=== PATIENT | male | born 1950 | race Caucasian/White ===

== ENCOUNTER 2016-10-13 17:12 | Emergency (ER) | payer MEDICARE ==
[2016-10-13] MEDS ORDERED: MECLIZINE HCL 25 MG TABLET PO ONE (17:48)
--- NOTE | 2016-10-13 18:01 | ER Document Report ---
ED Medical Screen (RME) - General Chief Complaint: Dizziness Stated Complaint: DIZZINESS Time Seen by Provider: 10/13/16 17:37 Notes: Patient is a 66-year-old male, PMHx CAD s/p 13 stents, who presents with 3 episodes of ataxia today. All 3 episodes lasted about an hour and resolved spontaneously. He feels off balance and has never had these symptoms before. When he arrived to the ER, he had another episode of ataxia. PE: Positive Romberg's test, no nystagmus, 5/5 strength in all 4 extremities I have greeted and performed a rapid initial assessment of this patient. A comprehensive ED assessment and evaluation of the patient, analysis of test results and completion of the medical decision making process will be conducted by additional ED providers. TRAVEL OUTSIDE OF THE [place] IN LAST 30 DAYS: No - Related Data Allergies/Adverse Reactions: No Known Allergies Allergy (Unverified 10/13/16 17:17) Past Medical History - Past Medical History Cardiac Medical History: Reports: Hx Coronary Artery Disease, Hx Hypercholesterolemia, Hx Hypertension Renal/ Medical History: Denies: Hx Peritoneal Dialysis Past Surgical History: Reports: Hx Cholecystectomy - cabgx3, Hx Coronary Artery Bypass Graft, Hx Orthopedic Surgery - Immunizations Hx Diphtheria, Pertussis, Tetanus Vaccination: Yes Physical Exam - Vital signs Vitals: Temp Pulse Resp BP Pulse Ox 97.9 F 72 20 148/70 H 97 10/13/16 17:17 10/13/16 17:17 10/13/16 17:17 10/13/16 17:17 10/13/16 17:17 Course - Vital Signs Vital signs: Temp Pulse Resp BP Pulse Ox 97.9 F 72 20 148/70 H 97 10/13/16 17:17 10/13/16 17:17 10/13/16 17:17 10/13/16 17:17 10/13/16 17:17
--- NOTE | 2016-10-13 18:25 | RADIOLOGY REPORT (SQ) ---
EXAM DESCRIPTION: CHEST SINGLE VIEW COMPLETED DATE/TIME: 10/13/2016 6:15 pm REASON FOR STUDY: near syncope COMPARISON: 11/20/2014 EXAM PARAMETERS: NUMBER OF VIEWS: One view. TECHNIQUE: Single frontal radiographic view of the chest acquired. RADIATION DOSE: NA LIMITATIONS: None. FINDINGS: LUNGS AND PLEURA: Again demonstrated the numerous calcified nodules throughout both lungs likely representing old granulomatous disease. These do not appear significantly changed the prior study. No opacities, new lesion or pneumothorax. No pleural effusion. MEDIASTINUM AND HILAR STRUCTURES: No masses. Contour normal. HEART AND VASCULAR STRUCTURES: Heart normal in size. Normal vasculature. BONES: No acute findings. HARDWARE: None in the chest. OTHER: No other significant finding. IMPRESSION: No acute cardiopulmonary disease. Stable bilateral pulmonary nodules likely representin g old granulomatous disease. TECHNICAL DOCUMENTATION: JOB ID: [id number]
[2016-10-13 18:35] LABS: ABSOLUTE BASOPHILS # (AUTO) 0.1 10^3/uL (0.0-0.2); ABSOLUTE EOSINOPHILS # (AUTO) 0.2 10^3/uL (0.0-0.6); ABSOLUTE LYMPHOCYTES (AUTO) 1.9 10^3/uL (0.5-4.7); ABSOLUTE MONOCYTES (AUTO) 0.7 10^3/uL (0.1-1.4); ABSOLUTE NEUT (AUTO) 3.7 10^3/uL (1.7-8.2); BASOPHILS % (AUTO) 0.9 % (0-2); HEMATOCRIT 41.4 % (37.9-51.0); HEMOGLOBIN 13.7 g/dL (13.5-17.0); HGB HCT DIFFERENCE -0.3; LYMPHOCYTES % (AUTO) 28.9 % (13-45); MEAN CORPUSCULAR HEMOGLOBIN 29.7 pg (27.0-33.4); MEAN CORPUSCULAR VOLUME 90 fl (80-97); MONOCYTES % (AUTO) 11.1 % (3-13); RED BLOOD COUNT 4.61 10^6/uL (4.35-5.55); RED CELL DISTRIBUTION WIDTH 13.7 % (11.5-14.0); SEGMENTED NEUTROPHILS % (AUTO) 56.1 % (42-78); WHITE BLOOD COUNT 6.5 10^3/uL (4.0-10.5)
[2016-10-13 18:51] LABS: ALANINE AMINOTRANSFERASE 21 U/L (21-72); ALBUMIN 4.1 g/dL (3.5-5.0); ALKALINE PHOSPHATASE 81 U/L (38-126); ANION GAP 13 (5-19); ASPARTATE AMINO TRANSFERASE 16 U/L (17-59); BILIRUBIN,DIRECT 0.3 mg/dL (0.0-0.4); BILIRUBIN,TOTAL 0.5 mg/dL (0.2-1.3); BLOOD UREA NITROGEN 19 mg/dL (7-20); CALCIUM 9.6 mg/dL (8.4-10.2); CARBON DIOXIDE 23 mmol/L (22-30); CHLORIDE 102 mmol/L (98-107); CREATINE KINASE 69 U/L (55-170); GLUCOSE 96 mg/dL (75-110); LIPASE 90.6 U/L (23-300); POTASSIUM 4.6 mmol/L (3.6-5.0); SODIUM 138.1 mmol/L (137-145); TOTAL PROTEIN 7.6 g/dL (6.3-8.2)
--- NOTE | 2016-10-13 19:14 | ER Document Report ---
ED General - General Chief Complaint: Dizziness Stated Complaint: DIZZINESS Time Seen by Provider: 10/13/16 17:37 Notes: Patient is a 66-year-old male who presents with intermittent vertigo for the past 6 hours. Patient states that he has episodes in which he feels like his vision is blurred, and he feels unsteady on his feet. States that he was at work today and his symptoms became so severe that he could not see the [employer] register so he had to leave. He did however drive home despite the symptoms and states that he was able to do so without significant difficulty. States that the symptoms resolved each time he would lay down and closes eyes. At time of my assessment he denies any ongoing symptoms. States that he believes the medication provided in triage has helped significantly. He has no similar history in the past. He has not seen his primary care doctor regarding today's concerns. He denies any weakness or numbness. Denies any point that he was unable to ambulate. Denies any history of prior CVA. Denies any headache, neck pain or altered mental status. No head trauma. Currently takes a daily aspirin TRAVEL OUTSIDE OF THE [place] IN LAST 30 DAYS: No - Related Data Allergies/Adverse Reactions: No Known Allergies Allergy (Unverified 10/13/16 17:17) Past Medical History - General Information source: Patient - Social History Smoking Status: Never Smoker Chew tobacco use (# tins/day): No Frequency of alcohol use: None Drug Abuse: None Lives with: Family Family History: Reviewed & Not Pertinent Patient has suicidal ideation: No Patient has homicidal ideation: No - Past Medical History Cardiac Medical History: Reports: Hx Coronary Artery Disease, Hx Hypercholesterolemia, Hx Hypertension Renal/ Medical History: Denies: Hx Peritoneal Dialysis Past Surgical History: Reports: Hx Cholecystectomy - cabgx3, Hx Coronary Artery Bypass Graft, Hx Orthopedic Surgery - Immunizations Hx Diphtheria, Pertussis, Tetanus Vaccination: Yes Review of Systems - Review of Systems Notes: Constitutional: Negative for fever. HENT: Negative for sore throat. Eyes: Negative for visual changes. Cardiovascular: Negative for chest pain. Respiratory: Negative for shortness of breath. Gastrointestinal: Negative for abdominal pain, vomiting or diarrhea. Genitourinary: Negative for dysuria. Musculoskeletal: Negative for back pain. Skin: Negative for rash. Neurological: Negative for headaches, weakness or numbness. Positive for vertigo 10 point ROS negative except as marked above and in HPI. Physical Exam - Vital signs Vitals: Temp Pulse Resp BP Pulse Ox 97.9 F 72 20 148/70 H 97 10/13/16 17:17 10/13/16 17:17 10/13/16 17:17 10/13/16 17:17 10/13/16 17:17 Interpretation: Hypertensive Notes: PHYSICAL EXAMINATION: GENERAL: Well-appearing, well-nourished and in no acute distress. HEAD: Atraumatic, normocephalic. EYES: Pupils equal round and reactive to light, extraocular movements intact, sclera anicteric, conjunctiva are normal. ENT: nares patent, oropharynx clear without exudates. Moist mucous membranes. NECK: Normal range of motion, supple without lymphadenopathy LUNGS: Breath sounds clear to auscultation bilaterally and equal. No wheezes rales or rhonchi. HEART: Regular rate and rhythm without murmurs ABDOMEN: Soft, nontender, normoactive bowel sounds. No guarding, no rebound. No masses appreciated. EXTREMITIES: Normal range of motion, no pitting or edema. No cyanosis. NEUROLOGICAL: Face symmetric. Tongue protrudes midline. Extraocular motions intact. Pupils are 2 mm and equally reactive. Normal speech, normal gait. 5 out of 5 strength in both the distal and proximal upper and lower extremities bilaterally. Sensation is grossly intact throughout. Finger to nose testing normal. Pronator drift normal. Negative Romberg. Horizontal nystagmus towards the left. Positive head impulse testing toward the left. PSYCH: Normal mood, normal affect. SKIN: Warm, Dry, normal turgor, no rashes or lesions noted. Course - Re-evaluation Re-evalutation: 10/13/16 19:08 Presentation of vertigo that appears most consistent with a benign peripheral vertigo. Patient has no abnormal findings on exam. Normal cerebellar testing, steady even gait. Able to walk on heels and toes. Normal proprioception. Patient did have improvement of symptoms here in the emergency department with meclizine. Apparently in triage patient did have some concerning findings on exam which are now completely resolved. HINTS exam does demonstrate horizontal nystagmus but no evidence of vertical nystagmus. He also has positive head impulse testing toward the left. Overall his clinical history is not consistent with an acute cerebral infarction for several reasons. First: Patient's symptoms were intermittent lasting for several minutes at a time and then resolving spontaneously. Basilar insufficiency could trigger symptoms such as this but it would be unlikely to be a true ischemic event as this would result in a permanent deficit. Second: Patient states even in the midst of his symptoms he was still able to ambulate and even drove a car. The mild nature of his symptoms likewise goes against a cerebellar infarction. Third: Patient has no focal neurologic deficits on examination here, passed all cerebellar testing without any difficulty and is able to ambulate without any ataxia. I have discussed with the patient the option of proceeding with an MRI here in the emergency department versus continuing outpatient management with meclizine and follow-up with his outpatient provider for continued evaluation and consideration of an outpatient neurology referral should his symptoms not improved. Patient is much more agreeable to this approach and has verbalized an understanding of the risks and benefits of each approach. Overall I suspect likely acute vestibular neuritis. I do not believe neurologic imaging is indicated at this time based on physical examination and clinical history. Patient will be discharged with recommendations to return should their symptoms worsen or they develop new concerning symptoms. - Vital Signs Vital signs: Temp Pulse Resp BP Pulse Ox 97.9 F 67 13 158/80 H 98 10/13/16 17:17 10/13/16 18:00 10/13/16 19:41 10/13/16 19:42 10/13/16 19:01 - Laboratory Result Diagrams: 10/13/16 18:26 10/13/16 18:26 Laboratory results interpreted by me: 10/13/16 18:26 AST 16 L Discharge - Discharge Clinical Impression: Vertigo Condition: Good Disposition: HOME, SELF-CARE Additional Instructions: You were seen today for lightheadedness/dizziness. The exact cause of your symptoms is unclear but your workup here is reassuring without any concerning findings. Please follow closely with your primary care physician in the next 1- 3 days. Return if you pass out, have dizziness the comes and stays, have additional episodes of lightheadedness, develop weakness/numbness, have persistent vomiting, chest pain, shortness of breath or any other symptoms that are concerning to you. Prescriptions: Meclizine HCl 25 mg PO Q6HP PRN #30 tablet PRN Reason:
[2016-10-13 19:46] VITALS: BP 158/80
--- NOTE | 2016-10-13 23:41 | EKG REPORT ---
SEVERITY:- NORMAL ECG - SINUS RHYTHM : Confirmed by: Angel Jasso 13-Oct-2016 23:41:11
== END 2016-10-13 19:46 | disposition home or self-care (01) ==
LOC: ER 17:12
DX: R42 Dizziness and giddiness (principal); I25.10 Atherosclerotic heart disease of native coronary artery without angina pectoris; E78.00 Pure hypercholesterolemia, unspecified; I10 Essential (primary) hypertension; Z90.49 Acquired absence of other specified parts of digestive tract; Z95.1 Presence of aortocoronary bypass graft
CPT/HCPCS: 93005; 99284; 36415; 82550; 83690; 85025; 80053; 84484; 71010; 93010; A9270

== ENCOUNTER 2018-08-11 14:13 | Emergency (ER) | payer MEDICARE ==
[2018-08-11] MEDS ORDERED: ASPIRIN 81 MG TABLET, CHEWABLE PO ONE (15:43)
--- NOTE | 2018-08-11 15:46 | ER Document Report ---
ED Medical Screen (RME) - General Chief Complaint: Flank Pain Stated Complaint: CHEST PAIN Time Seen by Provider: 08/11/18 15:37 Notes: Patient is a 68-year-old male presents to the emergency department for fever. Family states patient does have a history of bladder cancer and has had increased urination that is dark in color. Patient is also complaining of generalized chest pain. States that chest pain this afternoon took 1 sublingual nitro which relieved the chest pain. Patient states she is also having generalized lower back pain and bilateral kidney areas. Patient states he took 1 of his pain medications about 2 hours prior to arrival to the emergency room and states he overall feels a lot better. GENERAL: Alert, interacts well. No acute distress. SKIN: Warm, dry, normal turgor. No rashes or lesions noted. I have greeted and performed a rapid initial assessment of this patient. A comprehensive ED assessment and evaluation of the patient, analysis of test results and completion of the medical decision making process will be conducted by additional ED providers. This medical record was dictated with voice recognizing software. There may be grammatical, syntax errors that are unintended. TRAVEL OUTSIDE OF THE [place] IN LAST 30 DAYS: No - Related Data Allergies/Adverse Reactions: No Known Allergies Allergy (Verified 08/11/18 15:33) Past Medical History - Social History Frequency of alcohol use: None Drug Abuse: None - Past Medical History Cardiac Medical History: Reports: Hx Coronary Artery Disease, Hx Hypercholesterolemia, Hx Hypertension Renal/ Medical History: Denies: Hx Peritoneal Dialysis Past Surgical History: Reports: Hx Cardiac Catheterization - X13 CARDIAC STENTS, Hx Cholecystectomy - cabgx3, Hx Coronary Artery Bypass Graft, Hx Orthopedic Berna sonya - Immunizations Hx Diphtheria, Pertussis, Tetanus Vaccination: Yes Physical Exam - Vital signs Vitals: Temp Pulse Resp BP Pulse Ox 98.4 F 75 16 129/98 H 93 08/11/18 14:22 08/11/18 14:22 08/11/18 14:22 08/11/18 14:22 08/11/18 14:22 Course - Vital Signs Vital signs: Temp Pulse Resp BP Pulse Ox 98.4 F 75 16 129/98 H 93 08/11/18 14:22 08/11/18 14:22 08/11/18 14:22 08/11/18 14:22 08/11/18 14:22
--- NOTE | 2018-08-11 16:03 | RADIOLOGY REPORT (SQ) ---
EXAM DESCRIPTION: CHEST SINGLE VIEW COMPLETED DATE/TIME: 08/11/2018 3:52 pm REASON FOR STUDY: cp COMPARISON: 10/13/2016 EXAM PARAMETERS: NUMBER OF VIEWS: One view. TECHNIQUE: Single frontal radiographic view of the chest acquired. RADIATION DOSE: NA LIMITATIONS: None. FINDINGS: LUNGS AND PLEURA: No acute airspace opacity. There are multiple bilateral, likely calcifi ed pulmonary nodules stable dating back to at least 2016. MEDIASTINUM AND HILAR STRUCTURES: No masses. Contour normal. HEART AND VASCULAR STRUCTURES: Cardiomegaly status post median sternotomy with coronary artery stents . BONES: No acute findings. HARDWARE: None in the chest. OTHER: No other significant finding. IMPRESSION: Cardiomegaly without acute abnormality of the lungs. No acute airspace opacity. Benign , likely calcified bilateral pulmonary nodules. TECHNICAL DOCUMENTATION: JOB ID: [id number] [employer]- All Rights Reserved Reading location - IP/workstation name: [email or web address]
[2018-08-11 17:50] LABS: ABSOLUTE LYMPHOCYTES (AUTO) 0.4 10^3/uL (0.5-4.7); ABSOLUTE MONOCYTES (AUTO) 0.4 10^3/uL (0.1-1.4); ABSOLUTE NEUT (AUTO) 4.9 10^3/uL (1.7-8.2); BASOPHILS % (AUTO) 0.5 % (0-2); EOSINOPHILS % (AUTO) 0.3 % (0-6); HEMATOCRIT 31.1 % (37.9-51.0); HEMOGLOBIN 10.2 g/dL (13.5-17.0); LYMPHOCYTES % (AUTO) 6.9 % (13-45); MEAN CORPUSCULAR HEMOGLOBIN 25.9 pg (27.0-33.4); MEAN CORPUSCULAR HGB CONC 32.8 g/dL (32.0-36.0); MEAN CORPUSCULAR VOLUME 79 fl (80-97); MONOCYTES % (AUTO) 6.5 % (3-13); PLATELET COUNT 135 10^3/uL (150-450); RED BLOOD COUNT 3.93 10^6/uL (4.35-5.55); SEGMENTED NEUTROPHILS % (AUTO) 85.8 % (42-78); TOTAL CELLS COUNTED % (AUTO) 100 %; WHITE BLOOD COUNT 5.7 10^3/uL (4.0-10.5)
[2018-08-11 17:53] LABS: VENOUS BLOOD BASE EXCESS -0.9 mmol/L; VENOUS BLOOD HCO3 24.8 mmol/L (20-32); VENOUS BLOOD PCO2 45.6 mmHg (35-63); VENOUS BLOOD PH 7.35 (7.30-7.42)
[2018-08-11 17:56] LABS: INTERNATIONAL RATION (INR) 1.11; PROTHROMBIN TIME 14.9 SEC (11.4-15.4)
[2018-08-11 18:09] LABS: ALANINE AMINOTRANSFERASE 45 U/L (21-72); ALBUMIN 4.3 g/dL (3.5-5.0); ALKALINE PHOSPHATASE 104 U/L (38-126); ANION GAP 14 (5-19); ASPARTATE AMINO TRANSFERASE 52 U/L (17-59); BILIRUBIN,DIRECT 0.4 mg/dL (0.0-0.4); BILIRUBIN,TOTAL 0.8 mg/dL (0.2-1.3); BLOOD UREA NITROGEN 26 mg/dL (7-20); CALCIUM 9.4 mg/dL (8.4-10.2); CARBON DIOXIDE 22 mmol/L (22-30); CHLORIDE 98 mmol/L (98-107); GLUCOSE 130 mg/dL (75-110); POTASSIUM 4.5 mmol/L (3.6-5.0); TOTAL PROTEIN 7.6 g/dL (6.3-8.2)
[2018-08-11 18:25] LABS: APPEARANCE,URINE SLIGHTLY-CLOUDY; BILIRUBIN,URINE NEGATIVE (NEGATIVE); COLOR,URINE AMBER; GLUCOSE, URINE NEGATIVE (NEGATIVE); KETONES,URINE NEGATIVE (NEGATIVE); LEUKOCYTE ESTERASE,URINE SMALL (NEGATIVE); NITRITE,URINE NEGATIVE (NEGATIVE); PROTEIN,URINE 100 mg/dL (NEGATIVE)
--- NOTE | 2018-08-11 19:03 | EKG REPORT ---
SEVERITY:- ABNORMAL ECG - SINUS RHYTHM PROBABLE LEFT ATRIAL ABNORMALITY REPOL ABNRM SUGGESTS ISCHEMIA, LATERAL LEADS : Confirmed by: Deshawn Dye MD 11-Aug-2018 19:02:54
[2018-08-11] MEDS ORDERED: KETOROLAC TROMETHAMINE INJ/PF 30 MG/1 ML SDV IV ONE (20:59)
[2018-08-11] MEDS ORDERED: MORPHINE SULFATE 10 MG/ML INJ IV PRN (20:59)
[2018-08-11] MEDS ORDERED: NORMAL SALINE 1000 ML 1,000 ML IV ONE (21:00)
[2018-08-11] MEDS ORDERED: CEFTRIAXONE INJ 1000 MG VIAL IV ONE (21:00)
--- NOTE | 2018-08-11 21:01 | ER Document Report ---
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 The patient also apparently had some mild chest pain much earlier in the day approximately 10 to 12 hours prior to presentation which has now resolved. That pain was apparently a stabbing, aching pain just medial to the right shoulder without associated shortness of breath, nausea or vomiting. Has completely resolved at this time and has been gone for more than 8 hours per the patient's report. Family's main concern is that the patient has seemed somewhat lethargic, had a fever up to 102.7 F at home treated with Tylenol with appropriate response. Family is concerned that the patient may have an infection given the recent darkening of his urine. He has not seen his primary care doctor regarding today's concerns. No recent hi story of similar symptoms. Has had cough but no sputum production. TRAVEL OUTSIDE OF THE [place] IN LAST 30 DAYS: No - Related Data Allergies/Adverse Reactions: No Known Allergies Allergy (Verified 08/11/18 15:33) Past Medical History - General Information source: Patient - Social History Smoking Status: Current Every Day Smoker Frequency of alcohol use: None Drug Abuse: None Lives with: Family Family History: Reviewed & Not Pertinent Patient has suicidal ideation: No Patient has homicidal ideation: No - Past Medical History Cardiac Medical History: Reports: Hx Coronary Artery Disease, Hx Hypercholesterolemia, Hx Hypertension Renal/ Medical History: Denies: Hx Peritoneal Dialysis Past Surgical History: Reports: Hx Cardiac Catheterization - X13 CARDIAC STENTS, Hx Cholecystectomy - cabgx3, Hx Coronary Artery Bypass Graft, Hx Orthopedic Surgery - Immunizations Hx Diphtheria, Pertussis, Tetanus Vaccination: Yes Review of Systems - Review of Systems Notes: Constitutional: Positive for fever. HENT: Negative for sore throat. Eyes: Negative for visual changes. Cardiovascular: Positive for chest pain earlier now resolved Respiratory: Negative for shortness of breath. Gastrointestinal: Positive for lower abdominal pain and nausea Genitourinary: Positive for darkening of urine and dysuria Musculoskeletal: Negative for back pain. Skin: Negative for rash. Neurological: Negative for headaches, weakness or numbness. 10 point ROS negative except as marked above and in HPI. Physical Exam - Vital signs Vitals: Temp Pulse Resp BP Pulse Ox 98.4 F 75 16 129/98 H 93 08/11/18 14:22 08/11/18 14:22 08/11/18 14:22 08/11/18 14:22 08/11/18 14:22 Interpretation: Normal Notes: PHYSICAL EXAMINATION: GENERAL: Appears older than stated age but in no acute distress HEAD: Atraumatic, normocephalic. EYES: Pupils equal round and reactive to light, extraocular movements intact, sclera anicteric, conjunctiva are normal. ENT: nares patent, oropharynx clear without exudates. Mildly dry mucous membranes. NECK: Normal range of motion, supple without lymphadenopathy LUNGS: Breath sounds clear to auscultation bilaterally and equal. No wheezes rales or rhonchi. HEART: Regular rate and rhythm without murmurs ABDOMEN: Soft, nontender, normoactive bowel sounds. No guarding, no rebound. No masses appreciated. EXTREMITIES: Right BKA. No pitting or edema. NEUROLOGICAL: Mild expressive aphasia. No focal neurological deficits. Moves all extremities spontaneously and on command. PSYCH: Normal mood, normal affect. SKIN: Warm, Dry, normal turgor, no rashes or lesions noted. Course - Re-evaluation Re-evalutation: 08/11/18 21:00 Patient presents with bilateral lower abdominal pain, fever up to 102.7 F at home as well as bilateral flank pain. Patient has a known history of bladder malignancy, apparently with concerns of metastasis to liver although the patient was not thought to be able to tolerate total bladder removal due to prior history of coronary artery disease. Patient is nontoxic in appearance, mildly tachycardic and febrile at time of assessment. He does not have any localizing abdominal tenderness, rebound or guarding. Labs are notable for a urinalysis consistent with a urinary tract infection. However given patient's history of metastatic disease, will obtain CT scan of the abdomen pelvis to further clarify absence of any obstructing process, renal abscess. Patient had some chest pain greater than 8 hours prior to presentation. Initial troponin obtained and is negative and I do not believe serial cardiac markers are indicated as the initial is negative after greater than 8 hours of chest pain onset. Moreover the patient and family are clearly much more concerned regarding the patient having fever and feeling very fatigued. 08/11/18 23:45 CT abdomen pelvis unremarkable. Patient's vitals have improved. Labs do not show any findings other than as noted above. Continues to be chest pain-free. Patient was given a dose of ceftriaxone and has been started on cephalexin at home. At this time will discharge with return precautions and follow-up recommendations. Verbal discharge instructions given a the bedside and opportunity for questions given. Medication warnings reviewed. Patient is in agreement with this plan and has verbalized understanding of return precautions and the need for primary care follow-up in the next 24-72 hours. - Vital Signs Vital signs: Temp Pulse Resp BP Pulse Ox 98.6 F 55 L 20 115/47 L 94 08/12/18 00:26 08/12/18 00:26 08/12/18 00:26 08/12/18 00:26 08/12/18 00:26 - Laboratory Result Diagrams: 08/11/18 17:27 08/11/18 17:27 Laboratory results interpreted by me: 08/11/18 08/11/18 08/11/18 17:27 17:27 17:50 RBC 3.93 L Hgb 10.2 L Hct 31.1 L MCV 79 L MCH 25.9 L RDW 18.0 H Plt Count 135 L Seg Neutrophils % 85.8 H Lymphocytes % 6.9 L Absolute Lymphocytes 0.4 L Sodium 134.0 L BUN 26 H Glucose 130 H POC Glucose Urine Protein 100 H Urine Urobilinogen 2.0 H Ur Leukocyte Esterase SMALL H Urine Ascorbic Acid 40 H 08/11/18 17:55 RBC Hgb Hct MCV MCH RDW Plt Count Seg Neutrophils % Lymphocytes % Absolute Lymphocytes Sodium BUN Glucose POC Glucose 153 H Urine Protein Urine Urobilinogen Ur Leukocyte Esterase Urine Ascorbic Acid - Diagnostic Test Radiology reviewed: Image reviewed, Reports reviewed Radiology results interpreted by me: 08/11/18 23:45 Chest x-ray: No acute infiltrate - EKG Interpretation by Me Additional EKG results interpreted by me: 08/11/18 23:45 Sinus rhythm, rate 65. No ST elevations or depressions. T wave flattening in the lateral leads. QTC 452. Discharge - Discharge Clinical Impression: Pyelonephritis, Flank pain, acute, Lower abdominal pain, Chest discomfort Condition: Stable Disposition: HOME, SELF-CARE Additional Instructions: You have been diagnosed with a condition called pyelonephritis which is an infection involving your kidneys and bladder. You have been given a dose of antibiotics here in the emergency department to help begin to treat this infection. Your also being sent home on antibiotics. Your CT scan does not show any acute findings. Please start taking these later on today when you fill the prescription. Complete the course even if you feel better. Please return if you have persistent vomiting, pass out, have worsening pain, become unable to tolerate fluids, or have any other symptoms that are concerning to you. Please follow-up with your primary care physician in the next 24-48 hours. Prescriptions: Cephalexin Monohydrate [Keflex 500 mg Capsule] 500 mg PO Q6H 7 Days capsule Referrals: YEN NORRIS PA-C [Primary Care Provider] - Follow up tomorrow
--- NOTE | 2018-08-11 22:44 | RADIOLOGY REPORT (SQ) ---
EXAM DESCRIPTION: CT ABDOMEN PELVIS WITH IV CONTRAST COMPLETED DATE/TME: 08/11/2018 20:59 CLINICAL HISTORY: 68 years, Male, Fever, bladder malignancy with metastases This exam was performed according to our departmental dose-optimization program which includes automated exposure control, adjustment of the mA and/or kVp according to patient size and/or use of iterative reconstruction technique where applicable. FINDINGS: Visualized lung bases are within normal limits. Liver demonstrates an ill-defined 2.4 cm hypodense lesion in the right hepatic lobe, uncertain etiology. No biliary dilatation. Spleen is not enlarged. The pancreas, gallbladder and adrenal glands are within normal limits. Multiple bilateral renal cysts. No hydronephrosis. No dilated loops of bowel to suggest obstruction. Mild amount of stool in the colon. No free fluid or free air. No abdominal or pelvic lymphadenopathy. Abdominal aorta is moderately calcified without aneurysm. IMPRESSION: Right hepatic ill-defined hypodense lesion is of uncertain etiology. This does not represent a cyst. It may represent neoplasm or infection. Recommend follow-up ultrasound for further evaluation.
[2018-08-12 00:27] VITALS: BP 115/47
== END 2018-08-12 00:34 | disposition home or self-care (01) ==
LOC: ER 14:13
DX: N12 Tubulo-interstitial nephritis, not specified as acute or chronic (principal); R10.30 Lower abdominal pain, unspecified; R07.9 Chest pain, unspecified; R10.9 Unspecified abdominal pain; R50.9 Fever, unspecified; I69.920 Aphasia following unspecified cerebrovascular disease; Z85.51 Personal history of malignant neoplasm of bladder; Z90.49 Acquired absence of other specified parts of digestive tract; Z95.1 Presence of aortocoronary bypass graft
CPT/HCPCS: 93005; 99284; 96375; 96365; 36415; 87040; 87086; 82962; 85025; 85610; 80053; 81001; 84484; 82803; 83605; 71045; 74177; 93010; A9270; J1885; J2270; J0696; J7030

== ENCOUNTER → 2018-09-29 | Outpatient (CLI) | payer MEDICARE ==
--- NOTE | 2018-09-29 13:26 | RADIOLOGY REPORT (SQ) ---
EXAM DESCRIPTION: CT CHEST WITHOUT COMPLETED DATE/TIME: 09/29/2018 1:11 pm REASON FOR STUDY: ATYPICAL CHEST PAIN (R07.89) D49.4 NEOPLASM OF UNSPECIFIED BEHAVIOR OF BLADDER R0 7.89 OTHER CHEST PAIN COMPARISON: None. TECHNIQUE: CT scan performed of the chest without intravenous contrast. Images reviewed with lung, soft tissue and bone windows. Reconstructed coronal and sagittal MPR images reviewed. All images st ored on PACS. All CT scanners at this facility use dose modulation, iterative reconstruction, and/or weight based d osing when appropriate to reduce radiation dose to as low as reasonably achievable (ALARA). [facility]: Dose Right [facility]: CareDose [facility]: Dose Right [facility]: Teradose 4D [facility]: [employer] RADIATION DOSE: CT Rad equipment meets quality standard of care and radiation dose reduction techniq ues were employed. CTDIvol: 7.4 mGy. DLP: 282 mGy-cm. mGy. LIMITATIONS: No technical limitations. FINDINGS: LUNGS AND PLEURA: Multiple calcified granulomas are present. There are no noncalcified pu lmonary nodules. There is no infiltrate. There is no pleural effusion. HILAR AND MEDIASTINAL STRUCTURES: No identified masses or abnormal nodes. No obvious aneurysm. HEART AND VASCULAR STRUCTURES: No aneurysm. No pericardial effusion. CABG. UPPER ABDOMEN: There is an ill-defined 4 cm hypodense lesion in the right lobe of the liver. THYROID AND OTHER SOFT TISSUES: No masses. No adenopathy. BONES: No significant finding. HARDWARE: None in the chest. OTHER: No other significant findings. IMPRESSION: 1. Prior granulomatous disease. No acute findings in the chest. 2. 4 cm hypoattenuating hepatic lesion. TECHNICAL DOCUMENTATION: JOB ID: [id number] Quality ID # 436: Final reports with documentation of one or more dose reduction techniques (e.g., Au tomated exposure control, adjustment of the mA and/or kV according to patient size, use of iterative reconstruction technique) 2010 [employer]- All Rights Reserved Reading location - IP/workstation name: [email or web address]
--- NOTE | 2018-09-29 13:50 | RADIOLOGY REPORT (SQ) ---
EXAM DESCRIPTION: CT ABD/PELVIS WITH IV ONLY COMPLETED DATE/TIME: 09/29/2018 1:14 pm REASON FOR STUDY: BLADDER TUMOR (D49.4) D49.4 NEOPLASM OF UNSPECIFIED BEHAVIOR OF BLADDER R07.89 O THER CHEST PAIN COMPARISON: CT chest same date CT abdomen pelvis 08/11/2018 TECHNIQUE: CT scan of the abdomen and pelvis performed using helical scanning technique with dynamic intravenous contrast injection. No oral contrast. Images reviewed with lung, soft tissue, and bone windows. Reconstructed coronal and sagittal MPR images reviewed. Delayed images for evaluation of the urinary system also acquired. All images stored on PACS. All CT scanners at this facility use dose modulation, iterative reconstruction, and/or weight based d osing when appropriate to reduce radiation dose to as low as reasonably achievable (ALARA). [facility]: Dose Right [facility]: CareDose [facility]: Dose Right [facility]: Teradose 4D [facility]: [employer] CONTRAST TYPE AND DOSE: contrast/concentration: Isovue 350.00 mg/ml; Total Contrast Delivered: 83.0 ml; Total Saline Delivered: 69.0 ml RENAL FUNCTION: Creatinine 1.0 RADIATION DOSE: CT Rad equipment meets quality standard of care and radiation dose reduction techniq ues were employed. CTDIvol: 5.6 - 6.5 mGy. DLP: 567 mGy-cm.. LIMITATIONS: None. FINDINGS: LOWER CHEST: No significant findings. No nodules or infiltrates. LIVER: 5 cm hypodensity in the posterior right lobe liver. This could represent a hemangioma. Stati c lesion or primary liver mass could not be excluded. Dedicated liver MRI without and with contrast should be performed for further characterization. SPLEEN: Normal size. No focal lesions. PANCREAS: No masses. No significant calcifications. No adjacent inflammation or peripancreatic fluid collections. Pancreatic duct not dilated. GALLBLADDER: No identified stones by CT criteria. No inflammatory changes to suggest cholecystitis. ADRENAL GLANDS: No significant masses or asymmetry. RIGHT KIDNEY AND URETER: No solid masses. 1.7 cm right midpole renal cortical cyst. 2.2 cm right lo wer pole renal cortical cyst. No significant collecting system calcifications. No hydronephrosis o r hydroureter. LEFT KIDNEY AND URETER: No solid masses. 2.3 and 1.8 cm left upper pole renal cortical cysts. 1.4 c m left midpole renal cortical cyst. No significant collecting system calcifications. No hydronephr osis or hydroureter. AORTA AND VESSELS: No aneurysm. No dissection. Diffuse atherosclerotic calcification of the aorta wi th about 50% narrowing of the SMA and proximal bilateral renal arteries. RETROPERITONEUM: No retroperitoneal adenopathy, hemorrhage or masses. BOWEL AND PERITONEAL CAVITY: No masses or inflammatory changes. No free fluid or peritoneal masses. APPENDIX: Not identified PELVIS: Along the leftward bladder dome, with 2 cm diameter area of bladder wall thickening is presen t, best shown on coronal image 38 and axial image 62-64. This likely represents the patient's known bladder tumor. This is similar compared to prior CT abdomen pelvis 08/11/2018 ABDOMINAL WALL: No masses. No hernias. BONES: No significant or acute findings. OTHER: No other significant finding. IMPRESSION: 2 cm leftward bladder dome lesion compatible with clinical history of bladder cancer. T his is similar compared to 08/11/2018. Ill-defined 5 cm mass posterior right lobe liver. MRI recommended for further characterization, with out with contrast TECHNICAL DOCUMENTATION: JOB ID: [id number] Quality ID # 436: Final reports with documentation of one or more dose reduction techniques (e.g., Au tomated exposure control, adjustment of the mA and/or kV according to patient size, use of iterative reconstruction technique) 2010 [employer]- All Rights Reserved Reading location - IP/workstation name: [email or web address]
== END ==
LOC: RAD 12:34
PROVIDERS: ATTEND Urology
DX: R07.89 Other chest pain (principal); D49.4 Neoplasm of unspecified behavior of bladder; Q61.02 Congenital multiple renal cysts; R16.0 Hepatomegaly, not elsewhere classified
CPT/HCPCS: 71250; 74177; 82565

== ENCOUNTER → 2018-10-07 | Outpatient (CLI) | payer MEDICARE ==
--- NOTE | 2018-10-07 11:36 | RADIOLOGY REPORT (SQ) ---
EXAM DESCRIPTION: MRI ABDOMEN COMBO COMPLETED DATE/TIME: 10/07/2018 11:18 am REASON FOR STUDY: C67.9 MALIGNANT NEOPLASM OF BLADDER, UNSPECIFIED C67.9 MALIGNANT NEOPLASM OF BLAD EMILY, UNSPECIFIED COMPARISON: CT abdomen pelvis 09/29/2018 CT abdomen pelvis 08/11/2018 TECHNIQUE: Multiplanar multisequence imaging performed without and with contrast including sagittal, axial and coronal T2, axial T1, axial gradient fat sat T1, axial, sagittal and coronal fat sat T1 po st contrast. CONTRAST TYPE AND DOSE: 20 mL Dotarem. RENAL FUNCTION: Not indicated. ACR Type II contrast agent associated with few, if any, unconfounded cases of NSF LIMITATIONS: None. FINDINGS: LIVER: In the posterior right lobe liver sub- diaphragmatic surface, a 4.2 x 4.1 cm well-c ircumscribed mass is present. This is slightly decreased in signal compared to liver on precontrast T1 weighted images, slightly increased in signal compared to normal liver on T2 weighted images. The re is peripheral rim enhancement with enhancing central bandlike scar. This could represent focal no dular hyperplasia. Metastatic lesion could not entirely be excluded. Remainder of the liver is otherwise unremarkable. No biliary ductal dilatation. No other masses. N o cysts. SPLEEN: Normal size. No focal lesions. PANCREAS: No masses. No adjacent inflammation or peripancreatic fluid collections. Pancreatic duct no t dilated. GALLBLADDER: No masses. No stones. No gallbladder wall thickening or pericholecystic fluid. ADRENAL GLANDS: No significant masses or asymmetry. RIGHT KIDNEY AND URETER: No masses. No hydronephrosis. Benign cortical cysts about 2 cm in size LEFT KIDNEY AND URETER: No masses. No hydronephrosis. Benign cortical cysts about 2 cm in size AORTA AND VESSELS: No gross abdominal aortic aneurysm RETROPERITONEUM: No retroperitoneal adenopathy, hemorrhage or masses. BOWEL: Not well seen ABDOMINAL WALL AND PERITONEUM: No hernias. No free fluid. BONES: No acute or significant findings. OTHER: No other significant finding. IMPRESSION: 4.2 x 4.1 cm mass in the posterior sub- diaphragmatic surface right lobe liver. This ma y represent focal nodular hyperplasia or other primary liver mass. Metastatic disease could not enti rely be excluded. This does not follow signal characteristics for hemangioma TECHNICAL DOCUMENTATION: JOB ID: [id number] 2318 [employer]- All Rights Reserved Reading location - IP/workstation name: [email or web address]
== END ==
LOC: RAD 10:08
PROVIDERS: ATTEND Internal Medicine Hematology & Oncology
DX: C67.8 Malignant neoplasm of overlapping sites of bladder (principal)
CPT/HCPCS: 74183; A9576

== ENCOUNTER 2018-11-01 11:12 | Day surgery (SDC) | payer MEDICARE ==
[2018-11-01 12:23] LABS: HEMATOCRIT 35.1 % (37.9-51.0); HEMOGLOBIN 11.6 g/dL (13.5-17.0); MEAN CORPUSCULAR HEMOGLOBIN 26.7 pg (27.0-33.4); MEAN CORPUSCULAR HGB CONC 33.1 g/dL (32.0-36.0); MEAN CORPUSCULAR VOLUME 81 fl (80-97); PLATELET COUNT 213 10^3/uL (150-450); RED BLOOD COUNT 4.35 10^6/uL (4.35-5.55); RED CELL DISTRIBUTION WIDTH 21.6 % (11.5-14.0); WHITE BLOOD COUNT 6.3 10^3/uL (4.0-10.5)
[2018-11-01 12:30] LABS: INTERNATIONAL RATION (INR) 1.03; PROTHROMBIN TIME 13.5 SEC (11.4-15.4)
[2018-11-01 12:31] LABS: PARTIAL THROMBOPLASTIN TIME 28.1 SEC (23.5-35.8)
[2018-11-01 12:47] LABS: BLOOD UREA NITROGEN 17 mg/dL (7-20)
[2018-11-01] MEDS ORDERED: LIDOCAINE 1% INJ-PF (10 MG/ML) 30 ML SDV ONE (12:47)
[2018-11-01] MEDS ORDERED: MIDAZOLAM 2 MG/2 ML INJ ONE (12:47)
[2018-11-01] MEDS ORDERED: FENTANYL CITRATE INJ/PF 100 MCG/2 ML AMPUL ONE (12:47)
--- NOTE | 2018-11-01 14:52 | RADIOLOGY REPORT (SQ) ---
EXAM DESCRIPTION: CT BIOPSY LIVER; CT NEEDLE PLACEMENT COMPLETED DATE/TIME: 11/01/2018 2:35 pm REASON FOR STUDY: MALIGNANT NEOPLASM OF BLADDER; MALIGNANT NEOPLASM OF BLADDER, LIVER BIOPSY C67.9 MALIGNANT NEOPLASM OF BLADDER, UNSPECIFIED Z79.01 SENIOR CARE (CURRENT) USE OF ANTICOAGULANTS COMPARISON: None. TECHNIQUE: After obtaining informed consent and explaining the risks and benefits of conscious sedat ion,the patient agreed to the procedure. The patient was brought to the CT suite and was placed supin e on the CT gurney. The patient was prepped and draped in the usual sterile fashion. Axial images we re obtained for targeting of theright hepatic lobe lesion. An appropriate access site was selected. I V conscious sedation was administered and physician direction by the registered nurse using 1 milligr ams of Versed and 100 micrograms of fentanyl. Physiologic monitoring was provided before, during, and after sedation. The total sedation time was 30 minutes. Documentation face to face time, the performing proceduralist, spent monitoring the patient: [address] of the liver was performed to localize an approach for the right lobe hypodense hep atic lesion. A percutaneous site was marked. Time out was performed. After skin prep and local lidocaine for skin and deep tissue anesthesia, a coaxial biopsy needle sys tem was used to obtain several cores of tissue from the right hepatic hypodense lesion. These were s ubmitted to the lab in formalin. No immediate postprocedure complications. Total of [address] fluoro was used. 3 CT Fluoroscopic images were obtained and saved to PACS. All CT scanners at this facility use dose modulation, iterative reconstruction, and/or weight based d osing when appropriate to reduce radiation dose to as low as reasonably achievable (ALARA). [facility]: Dose Right [facility]: CareDose [facility]: Dose Right [facility]: Teradose 4D [facility]: [employer] RADIATION DOSE: CT Rad equipment meets quality standard of care and radiation dose reduction techniq ues were employed. CTDIvol: 4.0 - 23.8 mGy. DLP: 570 mGy-cm. mGy. LIMITATIONS: None. FINDINGS: CT guided liver biopsy as detailed above. IMPRESSION: CT GUIDED RIGHT HEPATIC LOBE HYPODENSE LIVER LESION BIOPSY PERFORMED ABOVE. PATHOLO GY PENDING. NO IMMEDIATE COMPLICATIONS. COMMENT: Patient medication list reviewed:Yes- Quality ID# [id number]:Eligible professional attests to docu menting in the medical record they obtained, updated, or reviewed the patient's current medications.. Quality ID 145: Final reports for procedures using fluoroscopy that document radiation exposure sera mirian, or exposure time and number of fluorographic images (if radiation exposure indices are not avail able) TECHNICAL DOCUMENTATION: JOB ID: [id number] Quality ID # 436: Final reports with documentation of one or more dose reduction techniques (e.g., A utomated exposure control, adjustment of the mA and/or kV according to patient size, use of iterative reconstruction technique) 2010 [employer]- All Rights Reserved Reading location - IP/workstation name: [email or web address]
--- NOTE | 2018-11-01 14:52 | RADIOLOGY REPORT (SQ) ---
EXAM DESCRIPTION: CT BIOPSY LIVER; CT NEEDLE PLACEMENT COMPLETED DATE/TIME: 11/01/2018 2:35 pm REASON FOR STUDY: MALIGNANT NEOPLASM OF BLADDER; MALIGNANT NEOPLASM OF BLADDER, LIVER BIOPSY C67.9 MALIGNANT NEOPLASM OF BLADDER, UNSPECIFIED Z79.01 HALFWAY (CURRENT) USE OF ANTICOAGULANTS COMPARISON: None. TECHNIQUE: After obtaining informed consent and explaining the risks and benefits of conscious sedat ion,the patient agreed to the procedure. The patient was brought to the CT suite and was placed supin e on the CT gurney. The patient was prepped and draped in the usual sterile fashion. Axial images we re obtained for targeting of theright hepatic lobe lesion. An appropriate access site was selected. I V conscious sedation was administered and physician direction by the registered nurse using 1 milligr ams of Versed and 100 micrograms of fentanyl. Physiologic monitoring was provided before, during, and after sedation. The total sedation time was 30 minutes. Documentation face to face time, the performing proceduralist, spent monitoring the patient: [address] of the liver was performed to localize an approach for the right lobe hypodense hep atic lesion. A percutaneous site was marked. Time out was performed. After skin prep and local lidocaine for skin and deep tissue anesthesia, a coaxial biopsy needle sys tem was used to obtain several cores of tissue from the right hepatic hypodense lesion. These were s ubmitted to the lab in formalin. No immediate postprocedure complications. Total of [address] fluoro was used. 3 CT Fluoroscopic images were obtained and saved to PACS. All CT scanners at this facility use dose modulation, iterative reconstruction, and/or weight based d osing when appropriate to reduce radiation dose to as low as reasonably achievable (ALARA). [facility]: Dose Right [facility]: CareDose [facility]: Dose Right [facility]: Teradose 4D [facility]: [employer] RADIATION DOSE: CT Rad equipment meets quality standard of care and radiation dose reduction techniq ues were employed. CTDIvol: 4.0 - 23.8 mGy. DLP: 570 mGy-cm. mGy. LIMITATIONS: None. FINDINGS: CT guided liver biopsy as detailed above. IMPRESSION: CT GUIDED RIGHT HEPATIC LOBE HYPODENSE LIVER LESION BIOPSY PERFORMED ABOVE. PATHOLO GY PENDING. NO IMMEDIATE COMPLICATIONS. COMMENT: Patient medication list reviewed:Yes- Quality ID# 130:Eligible professional attests to docu menting in the medical record they obtained, updated, or reviewed the patient's current medications.. Quality ID 145: Final reports for procedures using fluoroscopy that document radiation exposure sera mirian, or exposure time and number of fluorographic images (if radiation exposure indices are not avail able) TECHNICAL DOCUMENTATION: JOB ID: [id number] Quality ID # 436: Final reports with documentation of one or more dose reduction techniques (e.g., A utomated exposure control, adjustment of the mA and/or kV according to patient size, use of iterative reconstruction technique) 2010 [employer]- All Rights Reserved Reading location - IP/workstation name: [email or web address]
[2018-11-01 16:48] VITALS: BP 136/60
== END 2018-11-01 16:27 | disposition home or self-care (01) ==
LOC: RAD 11:12
PROVIDERS: ATTEND Internal Medicine Hematology & Oncology
DX: C67.9 Malignant neoplasm of bladder, unspecified (principal); Z79.01 Long term (current) use of anticoagulants
CPT/HCPCS: 36415; 84520; 82565; 85027; 85610; 85730; 88342 ×2; 88341 ×2; 88305 ×2; 88313 ×2; 77012; 47000; J2250; J3010; J3490

== ENCOUNTER → 2018-11-29 | Outpatient (CLI) | payer MEDICARE ==
--- NOTE | 2018-11-30 09:59 | RADIOLOGY REPORT (SQ) ---
EXAM DESCRIPTION: PET CT SKULL/THIGH COMPLETED DATE/TIME: 11/29/2018 10:39 pm REASON FOR STUDY: C67.9 MALIGNANT NEOPLASM OF BLADDER, UNSPECIFIED C67.9 MALIGNANT NEOPLASM OF BLAD EMILY, UNSPECIFIED COMPARISON: No prior pets, 09/29/2018, 11/01/2018 RADIONUCLIDE AND DOSE: 11.18 mCi F18 FDG The route of agent administration: Intravenous FASTING BLOOD SUGAR: 174 mg/dl CONTRAST TYPE AND DOSE: No CT contrast given. TECHNIQUE: Blood glucose level was verified. Above dose of FDG was injected intravenously. 2-D seg mented attenuation correction images were obtained from the base of the skull to the midthighs. Nonc ontrast CT images were obtained for attenuation correction and fusion with emission images. CT image s were performed without oral or intravenous contrast and are not sensitive for parenchymal lesions. A series of overlapping emission PET images were obtained. Images reviewed and manipulated at [facility] work station by the radiologist. Images stored on PACS. LIMITATIONS: None. FINDINGS: HEAD AND NECK: No areas of abnormal metabolic activity in the soft tissues of the head and neck. CHEST: No evidence of abnormal metabolic activity within the chest. Stable multiple calcified non hy permetabolic pulmonary nodules. ABDOMEN AND PELVIS: Background liver activity (max SUV 3.5). There is mild ill-defined activity wit hin the previously biopsied posterior right hepatic lobe lesion (max SUV 6.0). Evaluation of the uri nary bladder and genitourinary system limited secondary to expected physiologic activity. Additional physiologic activity noted throughout the gastrointestinal system. No other areas of abnormal metab olic activity in the abdomen or pelvis. PROXIMAL LOWER EXTREMITIES: No areas of abnormal metabolic activity in the soft tissues of the lower extremities. BONES: No abnormal metabolic activity in the visualized skeleton. ADDITIONAL CT FINDINGS: No evidence of acute process. Multiple scattered calcified pulmonary granulo ma, stable. Scattered coronary atherosclerosis. Right-sided chest port with catheter tip at cavoatr ial junction. Unchanged ill-defined lesion within the posterior right hepatic lobe. Stable hypodens e renal lesions, all likely cysts but incompletely characterized. Aortoiliac atherosclerosis. Mild asymmetric left bladder wall thickening. IMPRESSION: 1. Mild asymmetric left bladder wall thickened appears stable. Evaluation for hypermet abolic activity limited secondary to physiologic activity within the genitourinary system. 2. Stable size of the previously biopsied right posterior hepatic lobe hypodense lesion with mild in creased uptake (max SUV 6.0). Finding somewhat atypical for FNH although increased activity may part ially be related to residual post biopsy inflammation. 3. No other evidence of abnormal FDG uptake to suggest distant metastatic disease. TECHNICAL DOCUMENTATION: JOB ID: [id number] [employer]- All Rights Reserved Reading location - IP/workstation name: [email or web address]
== END ==
LOC: RAD 19:55
PROVIDERS: ATTEND Radiology Radiation Oncology
DX: C67.8 Malignant neoplasm of overlapping sites of bladder (principal)
CPT/HCPCS: 78815; A9552

== ENCOUNTER → 2019-03-08 | Outpatient (CLI) | payer MEDICARE ==
--- NOTE | 2019-03-08 15:44 | RADIOLOGY REPORT (SQ) ---
EXAM DESCRIPTION: CT ABD/PELVIS WITH IV ORAL COMPLETED DATE/TIME: 03/08/2019 11:09 am REASON FOR STUDY: C67.9 MALIGNANT NEOPLASM OF BLADDER, UNSPECIFIED C67.9 MALIGNANT NEOPLASM OF BLAD EMILY, UNSPECIFIED COMPARISON: PET-CT 11/29/2018 CT-guided liver biopsy 11/01/2018 MRI abdomen 10/07/2018 CT abdomen pelvis 09/29/2018 TECHNIQUE: CT scan of the abdomen and pelvis performed using helical scanning technique with dynamic intravenous contrast injection. Patient drank oral contrast. Images reviewed with lung, soft tissue , and bone windows. Reconstructed coronal and sagittal MPR images reviewed. Delayed images for evalua tion of the urinary system also acquired. All images stored on PACS. All CT scanners at this facility use dose modulation, iterative reconstruction, and/or weight based d osing when appropriate to reduce radiation dose to as low as reasonably achievable (ALARA). [facility]: Dose Right [facility]: CareDose [facility]: Dose Right [facility]: Teradose 4D [facility]: [employer] CONTRAST TYPE AND DOSE: contrast/concentration: Isovue 350.00 mg/ml; Total Contrast Delivered: 88.0 ml; Total Saline Delivered: 70.0 ml RENAL FUNCTION: Creatinine 1.1 RADIATION DOSE: CT Rad equipment meets quality standard of care and radiation dose reduction techniq ues were employed. CTDIvol: 6.6 - 6.6 mGy. DLP: 690 mGy-cm.. LIMITATIONS: None. FINDINGS: LOWER CHEST: Stable benign calcified granulomas at both lung bases LIVER: Right posterior liver mass 5.3 x 4.8 cm in size with subtle heterogeneous contrast enhancement , similar compared to previous exams SPLEEN: Normal size. No focal lesions. PANCREAS: No masses. No significant calcifications. No adjacent inflammation or peripancreatic fluid collections. Pancreatic duct not dilated. GALLBLADDER: No identified stones by CT criteria. No inflammatory changes to suggest cholecystitis. ADRENAL GLANDS: No significant masses or asymmetry. RIGHT KIDNEY AND URETER: No solid masses. 1.6 cm and 2.3 cm right mid and lower pole renal cysts. N o significant calcifications. No hydronephrosis or hydroureter. LEFT KIDNEY AND URETER: No solid masses. Left upper pole 2.3 cm, 1.9 cm, 1.2 cm renal cortical cysts . No significant calcifications. No hydronephrosis or hydroureter. AORTA AND VESSELS: No aneurysm. No dissection. Renal arteries, SMA, celiac without stenosis. RETROPERITONEUM: No retroperitoneal adenopathy, hemorrhage or masses. BOWEL AND PERITONEAL CAVITY: Patient drank oral contrast. No masses or inflammatory changes. No free fluid or peritoneal masses. There are colonic diverticuli without CT signs of acute diverticulitis APPENDIX: Normal. PELVIS: No mass. No free fluid. Very subtle leftward bladder wall thickening is present along the l ateral bladder wall and trigone. No pelvic adenopathy. ABDOMINAL WALL: No masses. No hernias. BONES: No significant or acute findings. OTHER: No other significant finding. IMPRESSION: Stable liver mass Left bladder trigone and bladder subtle wall thickening without pelvic adenopathy. TECHNICAL DOCUMENTATION: JOB ID: [id number] Quality ID # 436: Final reports with documentation of one or more dose reduction techniques (e.g., Au tomated exposure control, adjustment of the mA and/or kV according to patient size, use of iterative reconstruction technique) 2010 [employer]- All Rights Reserved Reading location - IP/workstation name: [email or web address]
== END ==
LOC: RAD 10:14
PROVIDERS: ATTEND Internal Medicine Hematology & Oncology
DX: C67.9 Malignant neoplasm of bladder, unspecified (principal)
CPT/HCPCS: 74177; 82565

== ENCOUNTER → 2020-04-08 | Outpatient (CLI) | payer MEDICARE ==
--- NOTE | 2020-04-08 16:55 | RADIOLOGY REPORT (SQ) ---
EXAM DESCRIPTION: CHEST 2 VIEWS IMAGES COMPLETED DATE/TIME: 04/08/2020 4:42 pm REASON FOR STUDY: (R07.82)INTERCOSTAL PAIN COMPARISON: AP VIEW OF THE CHEST FROM 11/21/2018 EXAM PARAMETERS: NUMBER OF VIEWS: Two views. TECHNIQUE: PA and lateral views of the chest were obtained. RADIATION DOSE: NA LIMITATIONS: None. FINDINGS: LUNGS AND PLEURA: Stable nodular opacities scattered throughout both lungs. The interstit ium is prominent. The costophrenic sulci are blunted. There is no pneumothorax. MEDIASTINUM AND HILAR STRUCTURES: No mediastinal or hilar contour abnormality. HEART AND VASCULAR STRUCTURES: The cardiac silhouette is borderline enlarged. BONES: No acute findings. HARDWARE: Sternotomy wires, right chest port and coronary stents. OTHER: No other finding. IMPRESSION: 1. Diffuse prominence of the interstitium and small bilateral pleural effusion - clinica l correlation for signs and symptoms of volume overload is recommended. 2. Stable nodular opacities scattered throughout both lungs. TECHNICAL DOCUMENTATION: JOB ID: [id number] 2010 [employer]- All Rights Reserved Reading location - IP/workstation name: [email or web address]
== END ==
LOC: RAD 16:07
PROVIDERS: ATTEND Nurse Practitioner Family
DX: R07.81 Pleurodynia (principal); Z85.51 Personal history of malignant neoplasm of bladder
CPT/HCPCS: 71046

== ENCOUNTER 2020-04-10 16:33 | Inpatient (IN) | payer MEDICARE ==
--- NOTE | 2020-04-10 16:47 | ER Document Report ---
ED Medical Screen (RME) - General Chief Complaint: Flank Pain Stated Complaint: SHORTNESS OF BREATH Time Seen by Provider: 04/10/20 16:40 Primary Care Provider: YEN NORRIS PA-C [Primary Care Provider] - Follow up as needed Information source: Patient Notes: Patient presents with chest pain, right upper quadrant and right lateral side pain. Patient has had pain since a fall 3 weeks ago. Patient does have a history of bladder cancer and prostate cancer with a liver mass. Patient also has a history of CAD and CHF. Patient has had shortness of breath that is worse with exertion. Patient without any urinary symptoms, nausea or vomiting. I have greeted and performed a rapid initial assessment of this patient. A comprehensive ED assessment and evaluation of the patient, analysis of test results and completion of the medical decision making process will be conducted by additional ED providers. TRAVEL OUTSIDE OF THE [place] IN LAST 30 DAYS: No - Related Data Allergies/Adverse Reactions: No Known Allergies Allergy (Verified 11/21/18 11:30) Past Medical History - Past Medical History Cardiac Medical History: Reports: Hx Coronary Artery Disease - HIGH CHOLESTEROL, Hx Heart Attack, Hx Hypercholesterolemia, Hx Hypertension Pulmonary Medical History: Reports: Hx COPD Denies: Hx Asthma, Hx Bronchitis, Hx Pneumonia Neurological Medical History: Denies: Hx Cerebrovascular Accident, Hx Seizures Renal/ Medical History: Denies: Hx Peritoneal Dialysis Musculoskeltal Medical History: Reports Hx Arthritis Past Surgical History: Reports: Hx Cardiac Catheterization - X13 CARDIAC STENTS, Hx Cholecystectomy - cabgx3, Hx Coronary Artery Bypass Graft, Hx Orthopedic Surgery - Immunizations Hx Diphtheria, Pertussis, Tetanus Vaccination: Yes Physical Exam - Vital signs Vitals: Temp Pulse Resp BP Pulse Ox 98.0 F 57 L 20 132/45 H 100 04/10/20 16:35 04/10/20 16:35 04/10/20 16:35 04/10/20 16:35 04/10/20 16:35 - Respiratory Chest status: Tender - Cardiovascular Rhythm: Regular Heart sounds: S1 appreciated, S2 appreciated Murmur: Yes Course - Vital Signs Vital signs: Temp Pulse Resp BP Pulse Ox 98.0 F 57 L 20 132/45 H 100 04/10/20 16:35 04/10/20 16:35 04/10/20 16:35 04/10/20 16:35 12/23/20 16:35 Doctor's Discharge - Discharge Referrals: YEN NORRIS PA-C [Primary Care Provider] - Follow up as needed
--- NOTE | 2020-04-10 17:43 | ER Document Report ---
ED General - General Chief Complaint: Shortness Of Breath Stated Complaint: SHORTNESS OF BREATH Time Seen by Provider: 04/10/20 16:40 TRAVEL OUTSIDE OF THE [place] IN LAST 30 DAYS: No - HPI Notes: 70-year-old male presents with right sided chest pain, right side abdominal pain and shortness of breath. 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 About 2 to 3 weeks ago patient had a fall, injuring the right side of his chest. Second Language Tutor states that he had a full work-up done in [place], to her knowledge she did not have any rib fractures, however an enlarging liver mass was found. Patient has a history of bladder and prostate cancer, 2 years ago a liver mass was found which was reportedly 3 cm. On the recent scans, the liver mass has grown to 12 cm. Patient's oncologist, Dr. Zhou is apparently aware of this. Patient reports continued right lower chest wall pain and right upper quadrant pain which she states is coming from his liver. He has shortness of breath mostly with exertion. Second Language Tutor states that she will check his respiratory rate and it increases into the 30s when he tries to ambulate and he becomes diaphoretic. Patient has a history of diastolic heart failure. 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 He has 13 stents and has had CABG in the past. Also of note patient has been off warfarin for the past 2 weeks, this was done in anticipation for a liver biopsy. - Related Data Allergies/Adverse Reactions: No Known Allergies Allergy (Verified 11/21/18 11:30) Past Medical History - General Information source: Patient - Social History Smoking Status: Current Some Day Smoker Chew tobacco use (# tins/day): No Frequency of alcohol use: None Drug Abuse: None Family History: Reviewed & Not Pertinent - Past Medical History Cardiac Medical History: Reports: Hx Coronary Artery Disease - HIGH CHOLESTEROL, Hx Heart Attack, Hx Hypercholesterolemia, Hx Hypertension Pulmonary Medical History: Reports: Hx COPD Denies: Hx Asthma, Hx Bronchitis, Hx Pneumonia Neurological Medical History: Denies: Hx Cerebrovascular Accident, Hx Seizures Renal/ Medical History: Denies: Hx Peritoneal Dialysis Musculoskeletal Medical History: Reports Hx Arthritis Past Surgical History: Reports: Hx Cardiac Catheterization - X13 CARDIAC STENTS, Hx Cholecystectomy - cabgx3, Hx Coronary Artery Bypass Graft, Hx Orthopedic Surgery - Immunizations Hx Diphtheria, Pertussis, Tetanus Vaccination: Yes Review of Systems - Review of Systems Constitutional: denies: Fever EENT: No symptoms reported Cardiovascular: denies: Chest pain Respiratory: Short of breath Gastrointestinal: Abdominal pain Genitourinary: No symptoms reported Male Genitourinary: No symptoms reported Musculoskeletal: denies: Leg swelling Skin: No symptoms reported Hematologic/Lymphatic: No symptoms reported Neurological/Psychological: denies: Weakness Physical Exam - Vital signs Vitals: Temp Pulse Resp BP Pulse Ox 98.0 F 57 L 20 132/45 H 100 04/10/20 16:35 04/10/20 16:35 04/10/20 16:35 04/10/20 16:35 04/10/20 16:35 - General General appearance: Appears well, Alert In distress: None - HEENT Head: Normocephalic, Atraumatic Extraocular movements intact: Yes Pupils: PERRL - Respiratory Respiratory status: No respiratory distress, Other - Able to speak in complete sentences Breath sounds: Rales - Fine at bases Chest palpation: No: Subcutaneous emphysema, Ecchymosis - Cardiovascular Rhythm: Regular Heart sounds: Normal auscultation Normal capillary refill: Yes - Abdominal Distension: No distension Tenderness: Tender - Mild, right upper quadrant. No: Guarding, Rebound Organomegaly: Other - No ecchymosis - Back Back: Nontender - Extremities General lower extremity: No: Edema - Left leg, status post BKA right leg - Neurological Neuro grossly intact: Yes Cognition: Normal Orientation: AAOx4 - Psychological Associated symptoms: Normal affect - Skin Skin Temperature: Warm Course - Re-evaluation Re-evalutation: 70-year-old male with SOP/MATTHEW, worsening over the past 2 weeks. Seems to of all started after a fall, had recent chest x-ray this week which was negative for fracture, I did review he does have a small pleural effusion. On exam he does not have any subcutaneous emphysema or ecchymosis to the right inferior chest wall. Will obtain CT chest to evaluate for rib fractures and possible associated hemothorax. Will additionally assess for PE as he would be at risk for this given his recent discontinuation of warfarin. Will additionally scan abdomen to evaluate for any associated hematoma that could have been from the fall with these known liver lesions, I did review the pathology from October 2018 which was negative for malignancy. Possible his pain is from subcapsular expansion. He does have a history of CHF, he does have fine rales at bases, does not appear overtly edematous, CHF exacerbation possible as well. No fever or cough, no known Covid exposures. 04/10/20 19:06 No leukocytosis, there is an elevated neutrophil count which was seen on previous values. Anemia present, not at transfusion threshold. Mild hypokalemia, will replace orally. Elevated creatinine. New marked elevation of BNP, troponin negative, awaiting CT chest 04/10/20 20:11 CTA is negative for PE and rib fractures, does have small pleural effusions. CT abdomen redemonstrates liver lesion, appears to be multiple confluent lesions. No other significant findings in the abdomen/pelvis per radiology. Patient and stewarding supervisor were updated on results. Have ordered Lasix as feel that CHF exacerbation is leading at this time. Patient admitted to the hospital service for CHF exacerbation and for further work-up of liver lesions - Vital Signs Vital signs: Temp Pulse Resp BP Pulse Ox 98.0 F 57 L 21 H 153/63 H 93 04/10/20 16:35 04/10/20 16:35 04/10/20 22:01 04/10/20 22:01 04/10/20 22:01 - Laboratory Results Result Diagrams: 04/10/20 17:21 04/10/20 17:21 Laboratory Results Interpreted: 04/10/20 04/10/20 04/10/20 17:21 17:21 17:21 RBC 2.95 L Hgb 8.3 L Hct 25.1 L RDW 18.1 H Lymph % (Auto) 7.2 L Seg Neutrophils % 82.5 H Potassium 3.5 L Creatinine 1.34 H Est GFR (MDRD) Non-Af 53 L Glucose 167 H Alkaline Phosphatase 177 H NT-Pro-B Natriuret Pep 9420 H Albumin 3.4 L Critical Laboratory Results Reviewed: No Critical Results - Radiology Results Critical Radiology Results Reviewed: No Critical Results Discharge - Discharge Clinical Impression: Liver masses, SELVIN (acute kidney injury) Acute exacerbation of CHF (congestive heart failure) Qualifiers: Heart failure type: diastolic Qualified Code(s): I50.33 - Acute on chronic diastolic (congestive) heart failure Anemia Qualifiers: Anemia type: unspecified type Qualified Code(s): D64.9 - Anemia, unspecified Disposition: ADMITTED INPATIENT Admitting Provider: Whitney (Hospitalist) Unit Admitted: Medical Floor
[2020-04-10 17:47] LABS: ABSOLUTE EOSINOPHILS # (AUTO) 0.1 10^3/uL (0.0-0.6); ABSOLUTE LYMPHOCYTES (AUTO) 0.7 10^3/uL (0.5-4.7); ABSOLUTE MONOCYTES (AUTO) 0.8 10^3/uL (0.1-1.4); ABSOLUTE NEUT (AUTO) 7.5 10^3/uL (1.7-8.2); BASOPHILS % (AUTO) 0.4 % (0-2); EOSINOPHILS % (AUTO) 1.3 % (0-6); HEMATOCRIT 25.1 % (37.9-51.0); HEMOGLOBIN 8.3 g/dL (13.5-17.0); LYMPHOCYTES % (AUTO) 7.2 % (13-45); MEAN CORPUSCULAR HEMOGLOBIN 28.1 pg (27.0-33.4); MEAN CORPUSCULAR VOLUME 85 fl (80-97); MONOCYTES % (AUTO) 8.6 % (3-13); PLATELET COUNT 372 10^3/uL (150-450); RED BLOOD COUNT 2.95 10^6/uL (4.35-5.55); RED CELL DISTRIBUTION WIDTH 18.1 % (11.5-14.0); SEGMENTED NEUTROPHILS % (AUTO) 82.5 % (42-78); TOTAL CELLS COUNTED % (AUTO) 100 %; WHITE BLOOD COUNT 9.1 10^3/uL (4.0-10.5)
--- NOTE | 2020-04-10 17:51 | RADIOLOGY REPORT (SQ) ---
EXAM DESCRIPTION: CHEST SINGLE VIEW IMAGES COMPLETED DATE/TIME: 04/10/2020 5:24 pm REASON FOR STUDY: cp, sob COMPARISON: 04/08/2020 EXAM PARAMETERS: NUMBER OF VIEWS: One view. TECHNIQUE: Single frontal radiographic view of the chest acquired. RADIATION DOSE: NA LIMITATIONS: None. FINDINGS: LUNGS AND PLEURA: Several small nodular densities are seen. No pneumothorax. No acute in filtrate. No pleural effusion. MEDIASTINUM AND HILAR STRUCTURES: No masses. Contour normal. HEART AND VASCULAR STRUCTURES: Heart size is borderline. No pulmonary edema. BONES: No acute findings. HARDWARE: Sternotomy wires. Injection port on the right. OTHER: No other significant finding. IMPRESSION: Mild chronic nodularity. Borderline heart size without pulmonary edema. TECHNICAL DOCUMENTATION: JOB ID: [id number] 2010 [employer]- All Rights Reserved Reading location - IP/workstation name: [email or web address]
[2020-04-10 18:04] LABS: ALBUMIN 3.4 g/dL (3.5-5.0); ALKALINE PHOSPHATASE 177 U/L (38-126); ANION GAP 11 (5-19); ASPARTATE AMINO TRANSFERASE 35 U/L (17-59); BILIRUBIN,DIRECT 0.2 mg/dL (0.0-0.4); BILIRUBIN,TOTAL 0.5 mg/dL (0.2-1.3); BLOOD UREA NITROGEN 20 mg/dL (7-20); CALCIUM 9.1 mg/dL (8.4-10.2); CARBON DIOXIDE 25 mmol/L (22-30); CHLORIDE 102 mmol/L (98-107); GLUCOSE 167 mg/dL (75-110); POTASSIUM 3.5 mmol/L (3.6-5.0); TOTAL PROTEIN 6.4 g/dL (6.3-8.2)
[2020-04-10 18:15] LABS: NT PRO BNP 9420 pg/mL (<125)
[2020-04-10 18:17] LABS: TROPONIN I < 0.012 ng/mL
[2020-04-10] MEDS ORDERED: POTASSIUM CHLORIDE 20 MEQ PACKET PO ONE (19:06)
--- NOTE | 2020-04-10 19:09 | EKG REPORT ---
SEVERITY:- ABNORMAL ECG - SINUS BRADYCARDIA PROBABLE LEFT ATRIAL ABNORMALITY ABNORMAL T, CONSIDER ISCHEMIA, LATERAL LEADS PROLONGED QT INTERVAL ? DRUG INDUCED : Confirmed by: Deshawn Dye MD 10-Apr-2020 19:09:03
--- NOTE | 2020-04-10 19:34 | RADIOLOGY REPORT (SQ) ---
EXAM DESCRIPTION: CTA CHEST IMAGES COMPLETED DATE/TIME: 04/10/2020 7:19 pm REASON FOR STUDY: SOB/MATTHEW, recent fall, eval PE vs fxc w effusion COMPARISON: 09/29/2018 TECHNIQUE: CT scan of the chest performed using helical scanning technique with dynamic intravenous contrast injection. Images reviewed with lung, soft tissue and bone windows. Reconstructed coronal and sagittal MPR images reviewed. Additional 3 dimensional post-processing performed to develop Maximal Intensity Projection images ([place] P). All images stored on PACS. All CT scanners at this facility use dose modulation, iterative reconstruction, and/or weight based d osing when appropriate to reduce radiation dose to as low as reasonably achievable (ALARA). [facility]: Dose Right [facility]: CareDose [facility]: Dose Right [facility]: Teradose 4D [facility]: QVIVO CONTRAST TYPE AND DOSE: 95 mL Omnipaque 350- low osmolar. Contrast bolus adequate for pulmonary arteries and aorta. RENAL FUNCTION: BUN 20 creatinine 1.34 RADIATION DOSE: CT Rad equipment meets quality standard of care and radiation dose reduction techniq ues were employed. CTDIvol: 6.6 - 22.8 mGy. DLP: 2845 mGy-cm. . LIMITATIONS: None. FINDINGS: LUNGS AND PLEURA: There multiple calcified granulomas. Mild centrilobular emphysema. Sma ll pleural effusions. AORTA AND GREAT VESSELS: No aneurysm. No dissection. HEART: No pericardial effusion. Prior CABG. PULMONARY ARTERIES: No emboli visualized in the main pulmonary arteries or the segmental branches. HILAR AND MEDIASTINAL STRUCTURES: Nonspecific mediastinal nodes. HARDWARE: Sternotomy wires. UPPER ABDOMEN: See separate report of the CT of the abdomen. THYROID AND OTHER SOFT TISSUES: No masses. No adenopathy. BONES: No acute or significant finding. 3D MIPS: Confirm above findings. OTHER: No other significant finding. IMPRESSION: There is no pulmonary embolus. There is no aortic aneurysm or dissection. Mild centril obular emphysema. Prior granulomatous disease. COMMENT: Quality ID # [id number]: Final reports with documentation of one or more dose reduction techniques (e.g., Automated exposure control, adjustment of the mA and/or kV according to patient size, use of iterative reconstruction technique) TECHNICAL DOCUMENTATION: JOB ID: [id number] 2010 [employer]- All Rights Reserved Reading location - IP/workstation name: [email or web address]
--- NOTE | 2020-04-10 19:42 | RADIOLOGY REPORT (SQ) ---
EXAM DESCRIPTION: CT ABD/PELVIS WITH IV ONLY IMAGES COMPLETED DATE/TIME: 04/10/2020 7:19 pm REASON FOR STUDY: R flank pain, known liver CA, eval assoc. bleeding COMPARISON: None. TECHNIQUE: CT scan of the abdomen and pelvis performed using helical scanning technique with dynamic intravenous contrast injection. No oral contrast. Images reviewed with lung, soft tissue, and bone windows. Reconstructed coronal and sagittal MPR images reviewed. Delayed images for evaluation of the urinary system also acquired. All images stored on PACS. All CT scanners at this facility use dose modulation, iterative reconstruction, and/or weight based d osing when appropriate to reduce radiation dose to as low as reasonably achievable (ALARA). [facility]: Dose Right [facility]: CareDose [facility]: Dose Right [facility]: Teradose 4D [facility]: Asterisk CONTRAST TYPE AND DOSE: contrast/concentration: Isovue 350.00 mmol/ml; Total Contrast Delivered: 95. 0 ml; Total Saline Delivered: 66.5 ml RENAL FUNCTION: BUN 20 creatinine 1.34 RADIATION DOSE: . LIMITATIONS: None. FINDINGS: LOWER CHEST: See separate report of the CT of the chest. LIVER: 14 cm low-density lesion in the right lobe of the liver. This represents a significant change since 09/29/2018. There is lesion appears to represent multiple confluent smaller lesions. SPLEEN: Normal size. No focal lesions. PANCREAS: No masses. No significant calcifications. No adjacent inflammation or peripancreatic fluid collections. Pancreatic duct not dilated. GALLBLADDER: Contracted. No stones. ADRENAL GLANDS: No significant masses or asymmetry. RIGHT KIDNEY AND URETER: No solid masses. There are some small vascular calcifications. No hydron ephrosis or hydroureter. LEFT KIDNEY AND URETER: No solid masses. There are some small vascular calcifications. No hydrone phrosis or hydroureter. AORTA AND VESSELS: No aneurysm. No dissection. Renal arteries, SMA, celiac without stenosis. RETROPERITONEUM: No retroperitoneal adenopathy, hemorrhage or masses. BOWEL AND PERITONEAL CAVITY: No masses or inflammatory changes. No free fluid or peritoneal masses. APPENDIX: Not identified. PELVIS: No mass. No free fluid. Normal bladder. ABDOMINAL WALL: No masses. No hernias. BONES: No significant or acute findings. OTHER: No other significant finding. IMPRESSION: Significantly increased disease in the right lobe of the liver compared to the prior nithya dy. No other significant finding in the abdomen or pelvis. TECHNICAL DOCUMENTATION: JOB ID: [id number] Quality ID # [id number]: Final reports with documentation of one or more dose reduction techniques (e.g., Au tomated exposure control, adjustment of the mA and/or kV according to patient size, use of iterative reconstruction technique) 2010 [employer]- All Rights Reserved Reading location - IP/workstation name: [email or web address]
[2020-04-10] MEDS ORDERED: FUROSEMIDE INJ/PF 20 MG/2 ML SDV IV ONE ×2 (19:54→19:55)
[2020-04-10] MEDS ORDERED: MORPHINE SULFATE 10 MG/ML INJ IV ONE (20:11)
[2020-04-10] MEDS ORDERED: POTASSIUM CHLORIDE 20 MEQ PACKET ONE (20:13)
[2020-04-10 21:12] LABS: APPEARANCE,URINE CLEAR; BILIRUBIN,URINE NEGATIVE (NEGATIVE); COLOR,URINE YELLOW; GLUCOSE, URINE NEGATIVE (NEGATIVE); KETONES,URINE NEGATIVE (NEGATIVE); LEUKOCYTE ESTERASE,URINE NEGATIVE (NEGATIVE); NITRITE,URINE NEGATIVE (NEGATIVE); PROTEIN,URINE 30 mg/dL (NEGATIVE); URINE SPECIFIC GRAVITY 1.048
[2020-04-10] MEDS ORDERED: HYDRALAZINE HCL INJ/PF 20 MG/1 ML SDV IV PRN (22:22)
[2020-04-10] MEDS ORDERED: METOPROLOL TARTRATE PF/INJ 5 MG/5 ML SDV IV PRN (22:23)
[2020-04-10] MEDS ORDERED: TEMAZEPAM 7.5 MG CAPSULE PO PRN (22:28)
[2020-04-10] MEDS ORDERED: MAGNESIUM HYDROXIDE SUSP 30 ML UDCUP PO PRN (22:28)
[2020-04-10] MEDS ORDERED: IPRATROPIUM/ALBUTEROL 0.5-2.5 MG/3 ML AMPUL NEB PRN (22:28)
[2020-04-10] MEDS ORDERED: ACETAMINOPHEN 325 MG TABLET PO PRN (22:28)
[2020-04-10] MEDS ORDERED: ONDANSETRON HCL INJ/PF 4 MG/2 ML SDV IV PRN (22:28)
[2020-04-10] MEDS ORDERED: PROMETHAZINE HCL INJ 25 MG/1 ML VIAL IV PRN (22:28)
[2020-04-11] MEDS: FUROSEMIDE INJ/PF 40 MG/4 ML SDV IV SCH ×3 (00:26→21:07)
--- NOTE | 2020-04-11 01:41 | PDOC H&P ---
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 Source of history is patient and his primary caregiver who is also present in the room. About 2 to 3 weeks ago patient had a mechanical fall injuring the right side of his chest, patient went to see his cardiology at [place] where he was told that he did not have any rib fracture and his source of chest pain was not cardiac in origin. Patient also have bladder and prostate cancer diagnosed about 2 years ago and has been receiving treatment by Dr. Granda oncologist. Patient was also noted to have liver nodules which were biopsied and were reported as benign but unfo rtunately recent repeat a scan showed worsening of the liver masses however his oncologist is already aware. Patient is still complaining of right lower chest and right upper quadrant abdominal pain. His shortness of breath is with minimal exertion, associated with orthopnea and paroxysmal nocturnal dyspnea. As per primary caregiver patient was recently evaluated by his trial mgr and was told that his worsening shortness of breath was not related to his underlying CAD. Patient does have history of CHF and COPD however is not oxygen dependent. Patient also have history of atrial fibrillation and used to take Coumadin however his Coumadin has been DC'd due to a large and liver masses. Patient denies any fever, chest pain, nausea, vomiting, diarrhea, constipation, urinary symptoms. In ED repeat CT abdomen pelvis showed significantly decreased disease in the right lobe of the liver compared to prior study, CTA chest was negative for PE or rib fracture, but was positive for mild centrilobular emphysema and prior granulomatous disease, EKG unchanged from prior admission, troponin undetectable however BNP 9420 with no prior BNP for comparison. Hospitalist consulted for admission. Past Medical History Cardiac Medical History: Reports: Coronary Artery Disease - HIGH CHOLESTEROL, Myocardial Infarction, Hyperlipidema, Hypertension Pulmonary Medical History: Reports: Chronic Obstructive Pulmonary Disease (COPD) Denies: Asthma, Bronchitis, Pneumonia Neurological Medical History: Denies: Seizures Musculoskeltal Medical History: Reports: Arthritis Hematology: Reports: Anemia Past Surgical History Past Surgical History: Reports: Cardiac Catheterization - X13 CARDIAC STENTS, Cholecystectomy - cabgx3, Coronary Artery Bypass Graft, Orthopedic Surgery Social History Smoking Status: Current Some Day Smoker Electronic Cigarette use?: No Family History Family History: Reviewed & Not Pertinent Parental Family History Reviewed: Yes Children Family History Reviewed: Yes Sibling(s) Family History Reviewed.: Yes Medication/Allergy Home Medications: Atorvastatin Calcium [Lipitor 20 mg Tablet] 40 mg PO DAILY 08/11/18 Clopidogrel Bisulfate [Plavix 75 mg Tablet] 75 mg PO DAILY 08/11/18 Isosorbide Mononitrate [Imdur 30 mg Tablet.er] 30 mg PO DAILY 08/11/18 Metoprolol Succinate [Toprol Xl] 25 mg PO DAILY 08/11/18 Furosemide [Lasix 20 mg Tablet] 60 mg PO DAILY 11/01/18 Pantoprazole Sodium [Protonix] 40 mg PO BID 11/01/18 Sertraline HCl [Zoloft] 200 mg PO QHS 11/01/18 Amiodarone HCl [Pacerone] 200 mg PO DAILY 04/10/20 Levothyroxine Sodium [Euthyrox] 50 mcg PO DAILY 04/10/20 Lisinopril [Prinivil] 20 mg PO DAILY 04/10/20 Allergies/Adverse Reactions: No Known Allergies Allergy (Verified 11/21/18 11:30) Review of Systems Review of Systems: as per hpi Physical Exam Vital Signs: Temp Pulse Resp BP Pulse Ox 98 F 54 L 20 143/57 H 98 04/11/20 00:39 04/11/20 00:39 04/11/20 00:39 04/11/20 00:39 04/11/20 00:39 Intake & Output 04/09/20 04/10/20 04/11/20 06:59 06:59 06:59 Weight 82.554 kg General appearance: PRESENT: no acute distress, well-developed, well-nourished Head exam: PRESENT: atraumatic, normocephalic Neck exam: ABSENT: carotid bruit, JVD, lymphadenopathy, thyromegaly Respiratory exam: PRESENT: crackles - Bibasilar. ABSENT: rales, rhonchi, wheezes Cardiovascular exam: PRESENT: RRR, other - Surgical scar from prior CABG. Right-sided Port-A-Cath no sign of infection.. ABSENT: diastolic murmur, rubs, systolic murmur Pulses: PRESENT: normal dorsalis pedis pul GI/Abdominal exam: PRESENT: distended, firm, normal bowel sounds, soft. ABSENT: guarding, mass, organolmegaly, rebound, tenderness Extremities exam: PRESENT: full ROM. ABSENT: calf tenderness, clubbing, pedal edema Neurological exam: PRESENT: alert, awake, oriented to person, oriented to place, oriented to time, oriented to situation, CN II-XII grossly intact. ABSENT: motor sensory deficit Results Laboratory Results: 04/10/20 17:21 04/10/20 17:21 04/10/20 04/10/20 04/10/20 17:21 17:21 20:55 WBC 9.1 RBC 2.95 L Hgb 8.3 L Hct 25.1 L MCV 85 MCH 28.1 MCHC 33.0 RDW 18.1 H Plt Count 372 Seg Neutrophils % 82.5 H Sodium 138.4 Potassium 3.5 L Chloride 102 Carbon Dioxide 25 Anion Gap 11 BUN 20 Creatinine 1.34 H Est GFR ( Amer) > 60 Glucose 167 H Calcium 9.1 Magnesium 1.9 Total Bilirubin 0.5 AST 35 Alkaline Phosphatase 177 H Total Protein 6.4 Albumin 3.4 L Lipase 165.3 Urine Color YELLOW Urine Appearance CLEAR Urine pH 6.0 Ur Specific [place] 1.048 Urine Protein 30 H Urine Glucose (UA) NEGATIVE Urine Ketones NEGATIVE Urine Blood NEGATIVE Urine Nitrite NEGATIVE Ur Leukocyte Esterase NEGATIVE Urine WBC (Auto) 2 Urine RBC (Auto) 0 04/10/20 17:21 Troponin I < 0.012 NT-Pro-B Natriuret Pep 9420 H Impressions: Chest X-Ray 04/10/20 16:45 IMPRESSION: Mild chronic nodularity. Borderline heart size without pulmonary edema. Chest/Abdomen CTA 04/10/20 17:55 IMPRESSION: There is no pulmonary embolus. There is no aortic aneurysm or dissection. Mild centrilobular emphysema. Prior granulomatous disease. Abdomen/Pelvis CT 04/10/20 17:56 IMPRESSION: Significantly increased disease in the right lobe of the liver compared to the prior study. No other significant finding in the abdomen or pelvis. Assessment and Plan - Diagnosis (1) Acute exacerbation of CHF (congestive heart failure) Qualifiers: Heart failure type: combined systolic and diastolic Qualified Code(s): I50.43 - Acute on chronic combined systolic (congestive) and diastolic (congestive) heart failure Is this a current diagnosis for this admission?: Yes Plan: Reports diet and medication adherence. Complaining of worsening dyspnea on exertion, paroxysmal nocturnal dyspnea and orthopnea. Presented with proBNP on admission 9420, troponin undetectable. Admit to telemetry, cardiac diet, strict in and out, fluid restriction, ADRIAN, ARB, beta-blockers, IV diuretics, daily weight, 2D echo. (2) CAD (coronary artery disease) of artery bypass graft Qualifiers: [place] vs. transplanted heart: [place] heart Associated angina: without angina Qualified Code(s): I25.810 - Atherosclerosis of coronary artery bypass graft(s) without angina pectoris Is this a current diagnosis for this admission?: Yes Plan: Denies any anginal symptoms. Troponins WNL. Continue beta-blockers, ADRIAN, statin, antiplatelets. Outpatient PCP and cardiology follow-up. (3) HTN (hypertension) Is this a current diagnosis for this admission?: Yes Plan: Normotensive. Resume home meds. Adjust meds as needed. (4) Hyperlipidemia Is this a current diagnosis for this admission?: Yes Plan: Resume home meds. (5) SELVIN (acute kidney injury) Is this a current diagnosis for this admission?: Yes Plan: Likely prerenal. Electrolytes WNL. Nonoliguric. Monitor electrolytes and volume status, avoid toxic meds. If worsening kidney function please consult nephrology. (6) Liver masses Is this a current diagnosis for this admission?: Yes Plan: No liver masses which are unfortunately enlarging on repeat scan. Oncologist aware. We will place a consult. (7) Bladder cancer Is this a current diagnosis for this admission?: Yes Plan: History of bladder cancer. Receiving chemotherapy Port-A-Cath in place on the right anterior chest. Followed by Dr. Granda oncologist. Will consult. (8) Atrial fibrillation Qualifiers: Atrial fibrillation type: longstanding persistent Qualified Code(s): I48.11 - Longstanding persistent atrial fibrillation Is this a current diagnosis for this admission?: Yes Plan: History of chronic persistent atrial fibrillation. Currently rate controlled. Not anticoagulated due to worsening renal masses. On amiodarone. Resume home meds. Outpatient PCP and cardiology follow-up. - Time Time Spent with patient: 35 or more minutes Anticipated Discharge Disposition: Home with Home Health Anticipated Discharge Timeframe: within 72 hours
[2020-04-11] MEDS: HEPARIN SOD (PORCINE) 5,000 UNIT/ML 1 ML VIAL SUBCUT SCH ×3 (06:15→21:06)
[2020-04-11 07:18] LABS: ABSOLUTE EOSINOPHILS # (AUTO) 0.2 10^3/uL (0.0-0.6); ABSOLUTE LYMPHOCYTES (AUTO) 0.6 10^3/uL (0.5-4.7); ABSOLUTE MONOCYTES (AUTO) 0.7 10^3/uL (0.1-1.4); ABSOLUTE RETICS # 0.096 10^6/uL (0.028-0.122); BASOPHILS % (AUTO) 0.4 % (0-2); EOSINOPHILS % (AUTO) 2.1 % (0-6); HEMATOCRIT 24.7 % (37.9-51.0); HEMOGLOBIN 8.3 g/dL (13.5-17.0); LYMPHOCYTES % (AUTO) 7.2 % (13-45); MEAN CORPUSCULAR HEMOGLOBIN 27.7 pg (27.0-33.4); MEAN CORPUSCULAR HGB CONC 33.4 g/dL (32.0-36.0); MEAN CORPUSCULAR VOLUME 83 fl (80-97); MONOCYTES % (AUTO) 8.4 % (3-13); PLATELET COUNT 361 10^3/uL (150-450); RED BLOOD COUNT 2.97 10^6/uL (4.35-5.55); RED CELL DISTRIBUTION WIDTH 17.1 % (11.5-14.0); RETICULOCYTE COUNT (AUTO) 3.24 % (0.66-2.85); SEGMENTED NEUTROPHILS % (AUTO) 81.9 % (42-78); TOTAL CELLS COUNTED % (AUTO) 100 %; WHITE BLOOD COUNT 8.6 10^3/uL (4.0-10.5)
[2020-04-11 07:30] LABS: ALBUMIN 3.2 g/dL (3.5-5.0); ALKALINE PHOSPHATASE 184 U/L (38-126); ANION GAP 10 (5-19); ASPARTATE AMINO TRANSFERASE 33 U/L (17-59); BILIRUBIN,DIRECT 0.3 mg/dL (0.0-0.4); BILIRUBIN,TOTAL 0.5 mg/dL (0.2-1.3); BLOOD UREA NITROGEN 18 mg/dL (7-20); CALCIUM 8.9 mg/dL (8.4-10.2); CARBON DIOXIDE 25 mmol/L (22-30); CHLORIDE 103 mmol/L (98-107); GLUCOSE 121 mg/dL (75-110); POTASSIUM 3.9 mmol/L (3.6-5.0); TOTAL PROTEIN 6.2 g/dL (6.3-8.2)
[2020-04-11 08:35] LABS: FOLATE 5.83 ng/mL (>2.76)
--- NOTE | 2020-04-11 10:08 | PDOC CONSULTATION ---
Consultation Consult Date: 04/11/20 Attending physician:: CALEB VALDEZ Provider Consulted: DONALD MESA Consult reason:: Patient with right abdominal pain, known history of both prostate and bladder cancer History of Present Illness Admission Date/PCP: 04/10/20 20:39 YEN NORRIS PA-C Patient complains of: Pain History of Present Illness: BENJAMIN RINCON is a 70 year old male with known history of both prostate and bladder cancer, last year he was found to have a liver mass, it was PET positive but unfortunately biopsy only indicated benign tissue. He then moved to [place] for some time, and recently moved back here. He has been having increasing right upper quadrant pain, upon presentation he had CT chest abdomen pelvis, this indicated increase in size of liver mass now almost 14 cm. Past Medical History Cardiac Medical History: Reports: Coronary Artery Disease - HIGH CHOLESTEROL, Myocardial Infarction, Hyperlipidema, Hypertension Pulmonary Medical History: Reports: Chronic Obstructive Pulmonary Disease (COPD) Denies: Asthma, Bronchitis, Pneumonia Neurological Medical History: Denies: Seizures Musculoskeltal Medical History: Reports: Arthritis Psychiatric Medical History: Denies: Depression Hematology: Reports: Anemia Past Surgical History Past Surgical History: Reports: Cardiac Catheterization - X13 CARDIAC STENTS, Cholecystectomy - cabgx3, Coronary Artery Bypass Graft, Orthopedic Surgery Social History Smoking Status: Current Some Day Smoker Electronic Cigarette use?: No - Advance Directive Resuscitation Status: Full Code Family History Family History: Reviewed & Not Pertinent Parental Family History Reviewed: Yes Children Family History Reviewed: Yes Sibling(s) Family History Reviewed.: Yes Medication/Allergy Home Medications: Atorvastatin Calcium [Lipitor 20 mg Tablet] 40 mg PO DAILY 08/11/18 Clopidogrel Bisulfate [Plavix 75 mg Tablet] 75 mg PO DAILY 08/11/18 Isosorbide Mononitrate [Imdur 30 mg Tablet.er] 30 mg PO DAILY 08/11/18 Metoprolol Succinate [Toprol Xl] 25 mg PO DAILY 08/11/18 Furosemide [Lasix 20 mg Tablet] 60 mg PO DAILY 11/01/18 Pantoprazole Sodium [Protonix] 40 mg PO BID 11/01/18 Sertraline HCl [Zoloft] 200 mg PO QHS 11/01/18 Amiodarone HCl [Pacerone] 200 mg PO DAILY 04/10/20 Levothyroxine Sodium [Euthyrox] 50 mcg PO DAILY 04/10/20 Lisinopril [Prinivil] 20 mg PO DAILY 04/10/20 Allergies/Adverse Reactions: No Known Allergies Allergy (Verified 11/21/18 11:30) Review of Systems Constitutional: ABSENT: chills, fever(s), headache(s), weight gain, weight loss Eyes: ABSENT: visual disturbances Ears: ABSENT: hearing changes Cardiovascular: ABSENT: chest pain, dyspnea on exertion, edema, orthropnea, palpitations Respiratory: ABSENT: cough, hemoptysis Gastrointestinal: ABSENT: abdominal pain, constipation, diarrhea, hematemesis, hematochezia, nausea, vomiting Genitourinary: ABSENT: dysuria, hematuria Musculoskeletal: ABSENT: joint swelling Integumentary: ABSENT: rash, wounds Neurological: ABSENT: abnormal gait, abnormal speech, confusion, dizziness, focal weakness, syncope Psychiatric: ABSENT: anxiety, depression, homidical ideation, suicidal ideation Endocrine: ABSENT: cold intolerance, heat intolerance, polydipsia, polyuria Hematologic/Lymphatic: ABSENT: easy bleeding, easy bruising Physical Exam Vital Signs: Temp Pulse Resp BP Pulse Ox 97.9 F 58 L 20 146/52 H 98 04/11/20 08:07 04/11/20 08:07 04/11/20 08:07 04/11/20 08:07 04/11/20 08:07 Intake & Output 04/10/20 04/11/20 04/12/20 06:59 06:59 06:59 Weight 82.6 kg General appearance: PRESENT: no acute distress, well-developed, well-nourished Head exam: PRESENT: atraumatic, normocephalic Eye exam: PRESENT: conjunctiva pink, EOMI, PERRLA. ABSENT: scleral icterus Ear exam: PRESENT: normal external ear exam Mouth exam: PRESENT: moist, tongue midline Neck exam: ABSENT: carotid bruit, JVD, lymphadenopathy, thyromegaly Respiratory exam: PRESENT: clear to auscultation [place]. ABSENT: rales, rhonchi, wheezes Cardiovascular exam: PRESENT: RRR. ABSENT: diastolic murmur, rubs, systolic murmur Pulses: PRESENT: normal dorsalis pedis pul Vascular exam: PRESENT: normal capillary refill GI/Abdominal exam: PRESENT: normal bowel sounds, soft. ABSENT: distended, guarding, mass, organolmegaly, rebound, tenderness Rectal exam: PRESENT: deferred Extremities exam: PRESENT: full ROM. ABSENT: calf tenderness, clubbing, pedal edema Neurological exam: PRESENT: alert, awake, oriented to person, oriented to place, oriented to time, oriented to situation, CN II-XII grossly intact. ABSENT: motor sensory deficit Psychiatric exam: PRESENT: appropriate affect, normal mood. ABSENT: homicidal ideation, suicidal ideation Skin exam: PRESENT: dry, intact, warm. ABSENT: cyanosis, rash Results Laboratory Results: 04/11/20 06:22 04/11/20 06:22 04/10/20 04/10/20 04/10/20 17:21 17:21 20:55 WBC 9.1 RBC 2.95 L Hgb 8.3 L Hct 25.1 L MCV 85 MCH 28.1 MCHC 33.0 RDW 18.1 H Plt Count 372 Seg Neutrophils % 82.5 H Retic Count (auto) Sodium 138.4 Potassium 3.5 L Chloride 102 Carbon Dioxide 25 Anion Gap 11 BUN 20 Creatinine 1.34 H Est GFR ( Amer) > 60 Glucose 167 H Calcium 9.1 Magnesium 1.9 Iron TIBC % Saturation Ferritin Total Bilirubin 0.5 AST 35 Alkaline Phosphatase 177 H Total Protein 6.4 Albumin 3.4 L Lipase 165.3 Vitamin B12 Folate Urine Color YELLOW Urine Appearance CLEAR Urine pH 6.0 Ur Specific [place] 1.048 Urine Protein 30 H Urine Glucose (UA) NEGATIVE Urine Ketones NEGATIVE Urine Blood NEGATIVE Urine Nitrite NEGATIVE Ur Leukocyte Esterase NEGATIVE Urine WBC (Auto) 2 Urine RBC (Auto) 0 04/11/20 04/11/20 06:22 06:22 WBC 8.6 RBC 2.97 L Hgb 8.3 L Hct 24.7 L MCV 83 MCH 27.7 MCHC 33.4 RDW 17.1 H Plt Count 361 Seg Neutrophils % 81.9 H Retic Count (auto) 3.24 H Sodium 137.7 Potassium 3.9 Chloride 103 Carbon Dioxide 25 Anion Gap 10 BUN 18 Creatinine 1.29 H Est GFR ( Amer) > 60 Glucose 121 H Calcium 8.9 Magnesium 1.8 Iron 33.0 L TIBC 295 % Saturation 11 Ferritin 71.10 Total Bilirubin 0.5 AST 33 Alkaline Phosphatase 184 H Total Protein 6.2 L Albumin 3.2 L Lipase Vitamin B12 771.0 Folate 5.83 Urine Color Urine Appearance Urine pH Ur Specific [place] Urine Protein Urine Glucose (UA) Urine Ketones Urine Blood Urine Nitrite Ur Leukocyte Esterase Urine WBC (Auto) Urine RBC (Auto) 04/10/20 17:21 Troponin I < 0.012 NT-Pro-B Natriuret Pep 9420 H Impressions: Chest X-Ray 04/10/20 16:45 IMPRESSION: Mild chronic nodularity. Borderline heart size without pulmonary edema. Chest/Abdomen CTA 04/10/20 17:55 IMPRESSION: There is no pulmonary embolus. There is no aortic aneurysm or dissection. Mild centrilobular emphysema. Prior granulomatous disease. Abdomen/Pelvis CT 04/10/20 17:56 IMPRESSION: Significantly increased disease in the right lobe of the liver compared to the prior study. No other significant finding in the abdomen or pelvis. Assessment & Plan - Diagnosis (1) Liver masses Is this a current diagnosis for this admission?: Yes Plan: Still unknown cause, I will review records in the office, but at present agree with continued supportive care. (2) Bladder cancer Qualifiers: Bladder location: unspecified site Qualified Code(s): C67.9 - Malignant neoplasm of bladder, unspecified Is this a current diagnosis for this admission?: Yes Plan: This is also being treated by Dr. Reed who is planning on doing repeat BCG treatment. We do not have evidence that it is definitely the bladder cancer in the liver. We will follow. (3) Prostate CA Is this a current diagnosis for this admission?: Yes Plan: Per notes patient has history of this as well, will follow up. (4) Pain, neoplasm-related Is this a current diagnosis for this admission?: Yes Plan: Seems to have some pain related to the liver findings, agree w/ morphine optimize as needed - Time Time Spent: Greater than 70 Minutes
[2020-04-11] MEDS: DOCUSATE SODIUM 100 MG CAPSULE PO SCH ×2 (10:50→17:58)
[2020-04-11] MEDS: AMIODARONE HCL 200 MG TABLET PO SCH (10:50)
[2020-04-11] MEDS: METOPROLOL SUCCINATE 25 MG TAB.SR.24H PO SCH (10:50)
[2020-04-11] MEDS: ISOSORBIDE MONONITRATE 30 MG TAB.ER.24H PO SCH (10:50)
[2020-04-11] MEDS: CLOPIDOGREL BISULFATE 75 MG TABLET PO SCH (10:50)
[2020-04-11] MEDS: PANTOPRAZOLE SODIUM 40 MG TABLET.DR PO SCH ×2 (10:50→17:58)
[2020-04-11] MEDS: ATORVASTATIN CALCIUM 20 MG TABLET PO SCH (10:51)
[2020-04-11] MEDS: LISINOPRIL 10 MG TABLET PO SCH (10:51)
[2020-04-11] MEDS: LEVOTHYROXINE SODIUM 0.05 MG TABLET PO SCH (10:53)
[2020-04-11] MEDS: MORPHINE SULFATE 10 MG/ML INJ IV PRN ×2 (11:48→16:36)
--- NOTE | 2020-04-11 14:24 | XCELERA REPORT ---
[address] [address] Transthoracic Echocardiogram Report Name: BENJAMNI RINCON Age: 70 yrs Gender: Male : 1950 Patient Status: Inpatient Patient Location: [address] [place], [place] [id number] Study Date: 04/11/2020 09:46 AM Height: 68 in Weight: 182 lb BSA: 2.0 m2 Procedure: A complete two-dimensional transthoracic echocardiogram was performed (2D, M-mode, spectral and color flow Doppler). The study was technically adequate with some images being suboptimal in quality. Reason For Study: acute chf Ordering Physician: CALEB VALDEZ Performed By: Carla Parker Interpretation Summary The left ventricle is grossly normal size. Left ventricular systolic function is low normal. The Ejection Fraction estimate is 45-50%. Doppler measurements suggest reversible restrictive left ventricular relaxation, which is associated with grade III/IV or moderate diastolic dysfunction. Flattened septum is consistent with RV pressure overload. There is mild global hypokinesis of the left ventricle. Mild LAE. Mild MR, mild , mild AI, moderate TR, trace PI. The inferior vena cava appeared dilated and decreased < 50% with respiration (RAP 15-20 mmHg) Pulmonary pressures between 63 and 68 mmHg. No prior studies for comparison. MMode/2D Measurements & Calculations RVDd: 2.6 cm LVIDd: 5.5 cm FS: 26.0 % Ao root diam: IVSd: 0.98 cm LVIDs: 4.1 cm EDV(Teich): 2.7 cm 149.8 ml Ao root area: LVPWd: 0.98 cm ESV(Teich): 5.6 cm2 74.2 ml LA dimension: EF(Teich): 50.5 % 4.4 cm LVLd ap4: 10.5 cm SV(MOD-sp4): EDV(MOD-sp4): 73.0 ml 151.0 ml LVLs ap4: 9.1 cm ESV(MOD-sp4): 78.0 ml EF(MOD-sp4): 48.3 % Doppler Measurements & Calculations MV E max carmen: MV P1/2t max carmen: Ao V2 max: LV V1 max P.7 cm/sec 115.8 cm/sec 256.6 cm/sec 3.3 mmHg MV A max carmen: MV P1/2t: 108.5 msec Ao max PG: LV V1 mean P.5 cm/sec MVA(P1/2t): 2.0 cm2 26.4 mmHg 1.7 mmHg MV E/A: 2.7 MV dec slope: Ao V2 mean: LV V1 max: 164.1 cm/sec 90.5 cm/sec 312.8 cm/sec2 Ao mean PG: LV V1 mean: MV dec time: 0.23 sec 13.1 mmHg 57.1 cm/sec Ao V2 VTI: 50.6 cmLV V1 VTI: 18.5 cm PA V2 max: PI end-d carmen: TR max carmen: MV P1/2t-pr_phl: 143.5 cm/sec 144.2 cm/sec 344.8 cm/sec 108.5 msec PA max PG: TR max P.2 mmHg 47.6 mmHg Left Ventricle The left ventricle is grossly normal size. Left ventricular systolic function is low normal. The Ejection Fraction estimate is 45-50%. Doppler measurements suggest reversible restrictive left ventricular relaxation, which is associated with grade III/IV or moderate diastolic dysfunction. There is mild global hypokinesis of the left ventricle. Flattened septum is consistent with RV pressure overload. Right Ventricle The right ventricle is normal in size, thickness and function. The right ventricular systolic function is normal. Atria The right atrium is normal. The left atrium is mildly dilated. The interatrial septum is difficult to see, but appears to be grossly normal. Mitral Valve The mitral valve is normal in structure and function. There is no evidence of mitral valve prolapse. There is no mitral valve stenosis. There is a mild amount of mitral regurgitation. Aortic Valve The aortic valve is trileaflet and normal in structure. The gradient across the valve reflects no hemodynamically significant degree of stenosis. No insufficiency seen. There is no aortic valvular vegetation. There is mild aortic stenosis. There is a mild amount of aortic regurgitation. Tricuspid Valve The tricuspid valve is not well visualized, but is grossly normal. There is no tricuspid valve prolapse. There is no tricuspid stenosis. There is a moderate amount of tricuspid regurgitation. There is servere pulmonary hypertension by echo. Pulmonary pressures between 63 and 68 mmHg. Pulmonic Valve The pulmonic valve is normal in structure and function. There is no vegetation on the pulmonic valve. There is no pulmonic valvular stenosis. There is a trace or physiologic amount of pulmonic regurgitation. Great Vessels The aortic root is normal size. The inferior vena cava appeared dilated and decreased < 50% with respiration (RAP 15-20 mmHg). Effusions There is no pericardial effusion. There is no pleural effusion. : CALEB VALDEZ Antonio
--- NOTE | 2020-04-11 17:38 | PDOC PROGRESS REPORT ---
Subjective Date:: 04/11/20 Subjective:: The patient is resting comfortably in bed. His first question was if he was goi ng home today. Unfortunately had to disappoint him. See discussion below. Reason For Visit: ACUTE CHF EXACERBATION,ACUTE HYPOXIC RESPIRATORY Physical Exam Vital Signs: Temp Pulse Resp BP Pulse Ox 98.3 F 53 L 17 112/71 97 04/11/20 16:00 04/11/20 16:00 04/11/20 16:00 04/11/20 16:00 04/11/20 16:00 Intake & Output 04/10/20 04/11/20 04/12/20 06:59 06:59 06:59 Intake Total 425 Output Total 800 Balance -375 Weight 82.6 kg General appearance: PRESENT: no acute distress, cooperative, well-developed Head exam: PRESENT: atraumatic, normocephalic Eye exam: PRESENT: conjunctiva pale. ABSENT: scleral icterus Ear exam: PRESENT: normal external ear exam. ABSENT: bleeding, drainage Mouth exam: PRESENT: moist, tongue midline Neck exam: ABSENT: carotid bruit, lymphadenopathy Respiratory exam: PRESENT: rales, symmetrical, unlabored. ABSENT: accessory muscle use, rhonchi, tachypnea, wheezes Cardiovascular exam: PRESENT: RRR, +S1, +S2, systolic murmur - 3/6. ABSENT: bradycardia, diastolic murmur, irregular rhythm, tachycardia GI/Abdominal exam: PRESENT: organolmegaly - Hepatomegaly, soft, tenderness - Right upper quadrant Rectal exam: PRESENT: deferred Extremities exam: ABSENT: pedal edema Musculoskeletal exam: PRESENT: deformity - Right below-knee amputation Neurological exam: PRESENT: alert, awake, oriented to person, oriented to place, oriented to time, oriented to situation, CN II-XII grossly intact. ABSENT: altered Psychiatric exam: PRESENT: appropriate affect. ABSENT: agitated, anxious Focused psych exam: ABSENT: delusional, paranoid, restlessness Results Laboratory Results: 04/11/20 06:22 04/11/20 06:22 04/10/20 04/10/20 04/10/20 17:21 17:21 20:55 WBC 9.1 RBC 2.95 L Hgb 8.3 L Hct 25.1 L MCV 85 MCH 28.1 MCHC 33.0 RDW 18.1 H Plt Count 372 Seg Neutrophils % 82.5 H Retic Count (auto) Sodium 138.4 Potassium 3.5 L Chloride 102 Carbon Dioxide 25 Anion Gap 11 BUN 20 Creatinine 1.34 H Est GFR ( Amer) > 60 Glucose 167 H Calcium 9.1 Magnesium 1.9 Iron TIBC % Saturation Ferritin Total Bilirubin 0.5 AST 35 Alkaline Phosphatase 177 H Total Protein 6.4 Albumin 3.4 L Lipase 165.3 Vitamin B12 Folate Urine Color YELLOW Urine Appearance CLEAR Urine pH 6.0 Ur Specific [place] 1.048 Urine Protein 30 H Urine Glucose (UA) NEGATIVE Urine Ketones NEGATIVE Urine Blood NEGATIVE Urine Nitrite NEGATIVE Ur Leukocyte Esterase NEGATIVE Urine WBC (Auto) 2 Urine RBC (Auto) 0 04/11/20 04/11/20 06:22 06:22 WBC 8.6 RBC 2.97 L Hgb 8.3 L Hct 24.7 L MCV 83 MCH 27.7 MCHC 33.4 RDW 17.1 H Plt Count 361 Seg Neutrophils % 81.9 H Retic Count (auto) 3.24 H Sodium 137.7 Potassium 3.9 Chloride 103 Carbon Dioxide 25 Anion Gap 10 BUN 18 Creatinine 1.29 H Est GFR ( Amer) > 60 Glucose 121 H Calcium 8.9 Magnesium 1.8 Iron 33.0 L TIBC 295 % Saturation 11 Ferritin 71.10 Total Bilirubin 0.5 AST 33 Alkaline Phosphatase 184 H Total Protein 6.2 L Albumin 3.2 L Lipase Vitamin B12 771.0 Folate 5.83 Urine Color Urine Appearance Urine pH Ur Specific [place] Urine Protein Urine Glucose (UA) Urine Ketones Urine Blood Urine Nitrite Ur Leukocyte Esterase Urine WBC (Auto) Urine RBC (Auto) 04/10/20 17:21 Troponin I < 0.012 NT-Pro-B Natriuret Pep 9420 H Impressions: Chest X-Ray 04/10/20 16:45 IMPRESSION: Mild chronic nodularity. Borderline heart size without pulmonary edema. Chest/Abdomen CTA 04/10/20 17:55 IMPRESSION: There is no pulmonary embolus. There is no aortic aneurysm or dissection. Mild centrilobular emphysema. Prior granulomatous disease. Abdomen/Pelvis CT 04/10/20 17:56 IMPRESSION: Significantly increased disease in the right lobe of the liver compared to the prior study. No other significant finding in the abdomen or pelvis. Assessment and Plan - Diagnosis (1) Acute on chronic diastolic heart failure Is this a current diagnosis for this admission?: Yes (2) CAD (coronary artery disease) of artery bypass graft Qualifiers: [place] vs. transplanted heart: absent[place] heart Associated angina: without alison na Qualified Code(s): I25.810 - Atherosclerosis of coronary artery bypass graft(s) without angina pectoris Is this a current diagnosis for this admission?: Yes (3) HTN (hypertension) Qualifiers: Hypertension type: essential hypertension Qualified Code(s): I10 - Essential (primary) hypertension Is this a current diagnosis for this admission?: Yes (4) Hyperlipidemia Qualifiers: Hyperlipidemia type: unspecified Qualified Code(s): E78.5 - Hyperlipidemia, unspecified Is this a current diagnosis for this admission?: Yes (5) SELVIN (acute kidney injury) Is this a current diagnosis for this admission?: Yes (6) Liver masses Is this a current diagnosis for this admission?: Yes (7) Pain, neoplasm-related Is this a current diagnosis for this admission?: Yes (8) Anemia Qualifiers: Anemia type: iron deficiency Iron deficiency anemia type: other iron deficiency Qualified Code(s): D50.8 - Other iron deficiency anemias Is this a current diagnosis for this admission?: Yes (9) Longstanding persistent atrial fibrillation Is this a current diagnosis for this admission?: Yes (10) Bladder cancer Qualifiers: Bladder location: unspecified site Qualified Code(s): 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, unspecified Is this a current diagnosis for this admission?: Yes (11) Depression Qualifiers: Depression Type: unspecified Qualified Code(s): F32.9 - Major depressive disorder, single episode, unspecified Is this a current diagnosis for this admission?: Yes (12) Hypothyroidism Qualifiers: Hypothyroidism type: unspecified Qualified Code(s): E03.9 - Hypothyroidism, unspecified Is this a current diagnosis for this admission?: Yes - Plan Summary Summary: (1) Acute on chronic diastolic heart failure (2) CAD (coronary artery disease) of artery bypass graft (3) HTN (hypertension) (4) Hyperlipidemia (5) SELVIN (acute kidney injury) (6) Liver masses (7) Pain, neoplasm-related (8) Anemia (9) Longstanding persistent atrial fibrillation (10) Bladder cancer (11) Depression (12) Hypothyroidism 04/11/2020 Heart failure-echocardiogram reveals grade 3/4 diastolic failure. Ejection fraction is at the lower limit of normal (45 to 50%). Continue increased dose of furosemide with potassium supplementation. He is already on metoprolol, lisinopril and Imdur. Coronary artery disease-continue Plavix and statin therapy Hypertension-monitor blood pressure on current medication regimen and adjust accordingly Hyperlipidemia-continue statin therapy Acute kidney injury-possibly related to the exacerbation of his heart failure. Creatinine was improved today. Continue to monitor. Liver mass-please also see oncology note. Most recent CT scan shows increased size (14 cm) which is causing the pain. Neoplasm related pain-increase morphine to 4 mg dosing and monitor Anemia-likely combination of his underlying malignancies. Will check fecal occult blood. We will also start iron supplement Atrial fibrillation-continue amiodarone. No anticoagulation due to liver masses Bladder cancer-defer to oncology Depression-continue sertraline Hypothyroidism-continue levothyroxine. Likely an adverse effect of amiodarone. - Time Time Spent with patient: 15-24 minutes Medications reviewed and adjusted accordingly: Yes Anticipated Discharge Disposition: Home, Self Care Anticipated Discharge Timeframe: within 72 hours
[2020-04-11] MEDS: FERROUS SULFATE 325 MG TABLET PO SCH (18:32)
[2020-04-11] MEDS ORDERED: SERTRALINE HCL 50 MG TABLET PO SCH (22:00)
[2020-04-12] MEDS: HEPARIN SOD (PORCINE) 5,000 UNIT/ML 1 ML VIAL SUBCUT SCH ×2 (06:44→13:25)
[2020-04-12] MEDS: MORPHINE SULFATE 10 MG/ML INJ IV PRN ×3 (06:53→15:11)
[2020-04-12 07:08] LABS: ABSOLUTE EOSINOPHILS # (AUTO) 0.1 10^3/uL (0.0-0.6); ABSOLUTE LYMPHOCYTES (AUTO) 0.6 10^3/uL (0.5-4.7); ABSOLUTE MONOCYTES (AUTO) 0.7 10^3/uL (0.1-1.4); ABSOLUTE NEUT (AUTO) 6.5 10^3/uL (1.7-8.2); BASOPHILS % (AUTO) 0.5 % (0-2); EOSINOPHILS % (AUTO) 1.7 % (0-6); HEMATOCRIT 25.1 % (37.9-51.0); HEMOGLOBIN 8.5 g/dL (13.5-17.0); LYMPHOCYTES % (AUTO) 7.1 % (13-45); MEAN CORPUSCULAR HEMOGLOBIN 27.9 pg (27.0-33.4); MEAN CORPUSCULAR HGB CONC 33.8 g/dL (32.0-36.0); MEAN CORPUSCULAR VOLUME 83 fl (80-97); MONOCYTES % (AUTO) 8.5 % (3-13); PLATELET COUNT 366 10^3/uL (150-450); RED BLOOD COUNT 3.04 10^6/uL (4.35-5.55); RED CELL DISTRIBUTION WIDTH 17.3 % (11.5-14.0); SEGMENTED NEUTROPHILS % (AUTO) 82.2 % (42-78); TOTAL CELLS COUNTED % (AUTO) 100 %; WHITE BLOOD COUNT 7.9 10^3/uL (4.0-10.5)
[2020-04-12 08:06] LABS: ALBUMIN 3.3 g/dL (3.5-5.0); ANION GAP 6 (5-19); BLOOD UREA NITROGEN 19 mg/dL (7-20); CALCIUM 8.7 mg/dL (8.4-10.2); CARBON DIOXIDE 27 mmol/L (22-30); CHLORIDE 100 mmol/L (98-107); GLUCOSE 125 mg/dL (75-110); PHOSPHORUS 3.4 mg/dL (2.5-4.5); POTASSIUM 4.1 mmol/L (3.6-5.0)
[2020-04-12] MEDS: FUROSEMIDE INJ/PF 40 MG/4 ML SDV IV SCH (11:02)
[2020-04-12] MEDS: LEVOTHYROXINE SODIUM 0.05 MG TABLET PO SCH (11:03)
[2020-04-12] MEDS: ATORVASTATIN CALCIUM 20 MG TABLET PO SCH (11:04)
[2020-04-12] MEDS: ISOSORBIDE MONONITRATE 30 MG TAB.ER.24H PO SCH (11:04)
[2020-04-12] MEDS: CLOPIDOGREL BISULFATE 75 MG TABLET PO SCH (11:05)
[2020-04-12] MEDS: LISINOPRIL 10 MG TABLET PO SCH (11:05)
[2020-04-12] MEDS: PANTOPRAZOLE SODIUM 40 MG TABLET.DR PO SCH (11:05)
[2020-04-12] MEDS: METOPROLOL SUCCINATE 25 MG TAB.SR.24H PO SCH (11:05)
[2020-04-12] MEDS: DOCUSATE SODIUM 100 MG CAPSULE PO SCH (11:05)
[2020-04-12] MEDS: FERROUS SULFATE 325 MG TABLET PO SCH (11:05)
[2020-04-12] MEDS: AMIODARONE HCL 200 MG TABLET PO SCH (11:05)
--- NOTE | 2020-04-12 15:16 | PDOC DISCHARGE SUMMARY ---
Impression - Admit/DC Date/PCP Admission Date/Primary Care Provider: 04/10/20 20:39 YEN NORRIS PA-C Discharge Date: 04/12/20 - Discharge Diagnosis (1) Acute on chronic diastolic heart failure Is this a current diagnosis for this admission?: Yes (2) CAD (coronary artery disease) of artery bypass graft Is this a current diagnosis for this admission?: Yes (3) HTN (hypertension) Is this a current diagnosis for this admission?: Yes (4) Hyperlipidemia Is this a current diagnosis for this admission?: Yes (5) SELVIN (acute kidney injury) Is this a current diagnosis for this admission?: Yes (6) Liver masses Is this a current diagnosis for this admission?: Yes (7) Pain, neoplasm-related Is this a current diagnosis for this admission?: Yes (8) Anemia Is this a current diagnosis for this admission?: Yes (9) Longstanding persistent atrial fibrillation Is this a current diagnosis for this admission?: Yes (10) Bladder cancer Is this a current diagnosis for this admission?: Yes (11) Depression Is this a current diagnosis for this admission?: Yes (12) Hypothyroidism Is this a current diagnosis for this admission?: Yes - Assessment Summary: (1) Acute on chronic diastolic heart failure (2) CAD (coronary artery disease) of artery bypass graft (3) HTN (hypertension) (4) Hyperlipidemia (5) SELVIN (acute kidney injury) (6) Liver masses (7) Pain, neoplasm-related (8) Anemia (9) Longstanding persistent atrial fibrillation (10) Bladder cancer (11) Depression (12) Hypothyroidism 04/11/2020 Heart failure-echocardiogram reveals grade 3/4 diastolic failure. Ejection fraction is at the lower limit of normal (45 to 50%). Continue increased dose of furosemide with potassium supplementation. He is already on metoprolol, lisinopril and Imdur. Coronary artery disease-continue Plavix and statin therapy Hypertension-monitor blood pressure on current medication regimen and adjust accordingly Hyperlipidemia-continue statin therapy Acute kidney injury-possibly related to the exacerbation of his heart failure. Creatinine was improved today. Continue to monitor. Liver mass-please also see oncology note. Most recent CT scan shows increased size (14 cm) which is causing the pain. Neoplasm related pain-increase morphine to 4 mg dosing and monitor Anemia-likely combination of his underlying malignancies. Will check fecal occult blood. We will also start iron supplement Atrial fibrillation-continue amiodarone. No anticoagulation due to liver masses Bladder cancer-defer to oncology Depression-continue sertraline Hypothyroidism-continue levothyroxine. Likely an adverse effect of amiodarone. 04/12/2020 The patient is doing very well again today. No evidence of heart failure at this time. No evidence of acute coronary syndrome. Acute kidney injury has resolved completely Anemia is stable Good rate control of atrial fibrillation as well as reasonable blood pressure control The patient is stable for discharged home with medication changes noted below. - Additional Information Resuscitation Status: Full Code Discharge Diet: Cardiac Discharge Activity: Activity As Tolerated, Balance Activity w/Rest Referrals: LAYA LAZARO MD [ACTIVE STAFF] - Prescriptions: Furosemide [Lasix 40 mg Tablet] 40 mg PO BID 30 Days #60 tablet Oxycodone HCl [Oxy-Ir 5 mg Tablet] 5 mg PO Q6HP PRN #20 tab MDD 4 tabs PRN Reason: Cancer related pain Home Medications: Atorvastatin Calcium [Lipitor 20 mg Tablet] 40 mg PO DAILY 08/11/18 Clopidogrel Bisulfate [Plavix 75 mg Tablet] 75 mg PO DAILY 08/11/18 Isosorbide Mononitrate [Imdur 30 mg Tablet.er] 30 mg PO DAILY 08/11/18 Metoprolol Succinate [Toprol Xl] 25 mg PO DAILY 08/11/18 Pantoprazole Sodium [Protonix] 40 mg PO BID 11/01/18 Sertraline HCl [Zoloft] 200 mg PO QHS 11/01/18 Amiodarone HCl [Pacerone] 200 mg PO DAILY 04/10/20 Levothyroxine Sodium [Euthyrox] 50 mcg PO DAILY 04/10/20 Lisinopril [Prinivil] 20 mg PO DAILY 04/10/20 Docusate Sodium [Colace 100 mg Capsule] 100 mg PO BID capsule 04/12/20 Ferrous Sulfate [Feosol 325 mg Tablet] 325 mg PO BIDPCBS tablet 04/12/20 Furosemide [Lasix 40 mg Tablet] 40 mg PO BID 30 Days #60 tablet 04/12/20 Oxycodone HCl [Oxy-Ir 5 mg Tablet] 5 mg PO Q6HP PRN #20 tab MDD 4 tabs 04/12/20 History of Present Illiness History of Present Illness: BENJAMIN RINCON is a 70 year old male with an extensive past medical history including CAD status post 13 stent placement, CABG, CHF, prostate cancer, bladder cancer, liver masses, TIAs, hypertension, hyperlipidemia, atrial fibril lation, nonoxygen dependent COPD and right BKA due to mechanical right lower extremity injury is brought to ED by her [id number] who is his primary caregiver for worsening shortness of breath, right-sided chest pain, frequent fall and right upper quadrant abdominal pain. Source of history is patient and his primary caregiver who is also present in the room. About 2 to 3 weeks ago patient had a mechanical fall injuring the right side of his chest, patient went to see his cardiology at [place] where he was told that he did not have any rib fracture and his source of chest pain was not cardiac in origin. Patient also have bladder and prostate cancer diagnosed about 2 years ago and has been receiving treatment by Dr. Granda oncologist. Patient was also noted to have liver nodules which were biopsied and were reported as benign but unfortunately recent repeat a scan showed worsening of the liver masses however his oncologist is already aware. Patient is still complaining of right lower chest and right upper quadrant abdominal pain. His shortness of breath is with minimal exertion, associated with orthopnea and paroxysmal nocturnal dyspnea. As per primary caregiver patient was recently evaluated by his valve technician and was told that his worsening shortness of breath was not related to his underlying CAD. Patient does have history of CHF and COPD however is not oxygen dependent. Patient also have history of atrial fibrillation and used to take Coumadin however his Coumadin has been DC'd due to a large and liver masses. Patient denies any fever, chest pain, nausea, vomiting, diarrhea, constipation, urinary symptoms. In ED repeat CT abdomen pelvis showed significantly decreased disease in the right lobe of the liver compared to prior study, CTA chest was negative for PE or rib fracture, but was positive for mild centrilobular emphysema and prior granulomatous disease, EKG unchanged from prior admission, troponin undetectable however BNP 9420 with no prior BNP for comparison. Hospitalist consulted for admission. Physical Exam Vital Signs: Temp Pulse Resp BP Pulse Ox 97.5 F 52 L 12 116/60 95 04/12/20 11:30 04/12/20 14:27 04/12/20 14:27 04/12/20 11:30 04/12/20 14:27 Intake & Output 04/11/20 04/12/20 04/13/20 06:59 06:59 06:59 Intake Total 945 320 Output Total 2250 Balance -1305 320 Weight 82.6 kg 78.6 kg General appearance: PRESENT: no acute distress, cooperative, well-developed Head exam: PRESENT: atraumatic, normocephalic Respiratory exam: PRESENT: clear to auscultation [place], symmetrical, unlabored. ABSENT: prolonged expiratory phas, rales, rhonchi, tachypnea, wheezes Cardiovascular exam: PRESENT: RRR, +S1, +S2 GI/Abdominal exam: PRESENT: normal bowel sounds, organolmegaly - Right upper quadrant, soft, tenderness - Right upper quadrant Rectal exam: PRESENT: deferred Gentrourinary exam: ABSENT: indwelling catheter Extremities exam: ABSENT: pedal edema Musculoskeletal exam: PRESENT: deformity - Right below-knee amputation Neurological exam: PRESENT: alert, awake, oriented to person, oriented to place, oriented to time, oriented to situation, CN II-XII grossly intact. ABSENT: altered Psychiatric exam: PRESENT: appropriate affect. ABSENT: agitated, anxious Focused psych exam: ABSENT: delusional, paranoid, restlessness Skin exam: PRESENT: dry, normal color, warm. ABSENT: rash Results Laboratory Results: WBC 7.9 10^3/uL (4.0-10.5) 04/12/20 06:48 RBC 3.04 10^6/uL (4.35-5.55) L 04/12/20 06:48 Hgb 8.5 g/dL (13.5-17.0) L 04/12/20 06:48 Hct 25.1 % (37.9-51.0) L 04/12/20 06:48 MCV 83 fl (80-97) 04/12/20 06:48 MCH 27.9 pg (27.0-33.4) 04/12/20 06:48 MCHC 33.8 g/dL (32.0-36.0) 04/12/20 06:48 RDW 17.3 % (11.5-14.0) H 04/12/20 06:48 Plt Count 366 10^3/uL (150-450) 04/12/20 06:48 Lymph % (Auto) 7.1 % (13-45) L 04/12/20 06:48 [place] % (Auto) 8.5 % (3-13) 04/12/20 06:48 Eos % (Auto) 1.7 % (0-6) 04/12/20 06:48 Baso % (Auto) 0.5 % (0-2) 04/12/20 06:48 Reticulocyte # 0.096 10^6/uL (0.028-0.122) 04/11/20 06:22 Absolute Neuts (auto) 6.5 10^3/uL (1.7-8.2) 04/12/20 06:48 Absolute Lymphs (auto) 0.6 10^3/uL (0.5-4.7) 04/12/20 06:48 Absolute Monos (auto) 0.7 10^3/uL (0.1-1.4) 04/12/20 06:48 Absolute Eos (auto) 0.1 10^3/uL (0.0-0.6) 04/12/20 06:48 Absolute Basos (auto) 0.0 10^3/uL (0.0-0.2) 04/12/20 06:48 Seg Neutrophils % 82.2 % (42-78) H 04/12/20 06:48 Retic Count (auto) 3.24 % (0.66-2.85) H 04/11/20 06:22 Sodium 133.3 mmol/L (137-145) L 04/12/20 06:48 Potassium 4.1 mmol/L (3.6-5.0) 04/12/20 06:48 Chloride 100 mmol/L (98-107) 04/12/20 06:48 Carbon Dioxide 27 mmol/L (22-30) 04/12/20 06:48 Anion Gap 6 (5-19) 04/12/20 06:48 BUN 19 mg/dL (7-20) 04/12/20 06:48 Creatinine 1.15 mg/dL (0.52-1.25) 04/12/20 06:48 Est GFR ( Amer) > 60 (>60) 04/12/20 06:48 Est GFR (MDRD) Non-Af > 60 (>60) 04/12/20 06:48 Glucose 125 mg/dL (75-110) H 04/12/20 06:48 Calcium 8.7 mg/dL (8.4-10.2) 04/12/20 06:48 Phosphorus 3.4 mg/dL (2.5-4.5) 04/12/20 06:48 Magnesium 1.7 mg/dL (1.6-2.3) 04/12/20 06:48 Iron 33.0 ug/dL (49-181) L 04/11/20 06:22 TIBC 295 ug/dL (250-450) 04/11/20 06:22 % Saturation 11 % 04/11/20 06:22 Ferritin 71.10 ng/mL (17.9-464.0) 04/11/20 06:22 Total Bilirubin 0.5 mg/dL (0.2-1.3) 04/11/20 06:22 Direct Bilirubin 0.3 mg/dL (0.0-0.4) 04/11/20 06:22 Neonat Total Bilirubin Not Reportable 04/11/20 06:22 Neonat Direct Bilirubin Not Reportable 04/11/20 06:22 Neonat Indirect Bili Not Reportable 04/11/20 06:22 AST 33 U/L (17-59) 04/11/20 06:22 ALT 35 U/L (<50) 04/11/20 06:22 Alkaline Phosphatase 184 U/L (38-126) H 04/11/20 06:22 Lactate Dehydrogenase 188 U/L (120-246) 04/11/20 06:22 Troponin I < 0.012 ng/mL 04/10/20 17:21 NT-Pro-B Natriuret Pep 9420 pg/mL (<125) H 04/10/20 17:21 Total Protein 6.2 g/dL (6.3-8.2) L 04/11/20 06:22 Albumin 3.3 g/dL (3.5-5.0) L 04/12/20 06:48 Lipase 165.3 U/L (23-300) 04/10/20 17:21 Vitamin B12 771.0 pg/mL (239-931) 04/11/20 06:22 Folate 5.83 ng/mL (>2.76) 04/11/20 06:22 Urine Color YELLOW 04/10/20 20:55 Urine Appearance CLEAR 04/10/20 20:55 Urine pH 6.0 (5.0-9.0) 04/10/20 20:55 Ur Specific [place] 1.048 04/10/20 20:55 Urine Protein 30 mg/dL (NEGATIVE) H 04/10/20 20:55 Urine Glucose (UA) NEGATIVE mg/dL (NEGATIVE) 04/10/20 20:55 Urine Ketones NEGATIVE mg/dL (NEGATIVE) 04/10/20 20:55 Urine Blood NEGATIVE (NEGATIVE) 04/10/20 20:55 Urine Nitrite NEGATIVE (NEGATIVE) 04/10/20 20:55 Urine Bilirubin NEGATIVE (NEGATIVE) 04/10/20 20:55 Urine Urobilinogen 4.0 mg/dL (<2.0) H 04/10/20 20:55 Ur Leukocyte Esterase NEGATIVE (NEGATIVE) 04/10/20 20:55 Urine WBC (Auto) 2 /HPF 04/10/20 20:55 Urine RBC (Auto) 0 /HPF 04/10/20 20:55 U Hyaline Cast (Auto) 1 /LPF 04/10/20 20:55 Urine Mucus (Auto) OCC /LPF 04/10/20 20:55 Urine Ascorbic Acid NEGATIVE (NEGATIVE) 04/10/20 20:55 04/10/20 17:21 Troponin I < 0.012 NT-Pro-B Natriuret Pep 9420 H Impressions: Chest X-Ray 04/10/20 16:45 IMPRESSION: Mild chronic nodularity. Borderline heart size without pulmonary edema. Chest/Abdomen CTA 04/10/20 17:55 IMPRESSION: There is no pulmonary embolus. There is no aortic aneurysm or dissection. Mild centrilobular emphysema. Prior granulomatous disease. Abdomen/Pelvis CT 04/10/20 17:56 IMPRESSION: Significantly increased disease in the right lobe of the liver compared to the prior study. No other significant finding in the abdomen or pelvis. Plan Health Concerns: Enlarging liver mass in a patient with other malignancies Plan of Treatment: Increase furosemide as noted above Pain control for cancer related pain Recheck blood work in the next week or so Goals: Identification of the etiology of the liver mass with appropriate treatment regimen. Stability of heart failure and COPD. Time Spent: Greater than 30 Minutes Stroke Is this a Stroke Patient?: No Acute Heart Failure Is this a Heart Failure Patient?: Yes Documentation of LVEF assessment?: Yes LVEF: LVEF Greater Than 40% Anticoagulant Therapy: N/A Discharged on Evidence-Based Beta Blockers: Yes Discharged on ARNI?: No-Document Contraindications Reason(s) not discharged on ARNI: ACEI use within the prior 36 hours Discharged on ARB?: No-document contraindications Reason(s) not Discharged on ARB: Other ARB Reason - Other: Discharged on ADRIAN inhibitor Discharged on ACEI?: Yes For LVEF <35%, discharged on Aldosterone Antagonist?: N/A (LVEF > or = 35%) Follow-up Appointment scheduled within 7 days?: No, document reason - Limited access due to holidays
[2020-04-12 15:27] VITALS: BP 112/71
== END 2020-04-12 16:00 | disposition home or self-care (01) | DRG 291 ==
LOC: ER 16:33 → EH 20:39 → 4N 23:44
PROVIDERS: ADMIT Internal Medicine; ATTEND Hospitalist
PROC: B24BZZ4 Ultrasonography of Heart with Aorta, Transesophageal (ICD-10-PCS; principal; 2020-04-11)
DX: I11.0 Hypertensive heart disease with heart failure (principal); J96.01 Acute respiratory failure with hypoxia; I25.810 Atherosclerosis of coronary artery bypass graft(s) without angina pectoris; N17.9 Acute kidney failure, unspecified; I48.11 Longstanding persistent atrial fibrillation; E78.5 Hyperlipidemia, unspecified; R16.0 Hepatomegaly, not elsewhere classified; G89.3 Neoplasm related pain (acute) (chronic); D63.0 Anemia in neoplastic disease; C67.9 Malignant neoplasm of bladder, unspecified; F32.9 Major depressive disorder, single episode, unspecified; E03.9 Hypothyroidism, unspecified; J43.9 Emphysema, unspecified; F17.210 Nicotine dependence, cigarettes, uncomplicated; I50.43 Acute on chronic combined systolic (congestive) and diastolic (congestive) heart failure; I25.2 Old myocardial infarction; Z79.899 Other long term (current) drug therapy; Z79.02 Long term (current) use of antithrombotics/antiplatelets; Z95.5 Presence of coronary angioplasty implant and graft; Z95.1 Presence of aortocoronary bypass graft; Z86.73 Personal history of transient ischemic attack (TIA), and cerebral infarction without residual deficits; Z89.511 Acquired absence of right leg below knee; Z91.81 History of falling; Z85.46 Personal history of malignant neoplasm of prostate
CPT/HCPCS: 36415; 71045; 71046; 71275; 74177; 80053; 80069; 81001; 82607; 82728; 82746; 83540; 83550; 83615; 83690; 83735; 83880; 84484; 85025; 85045; 93005; 93010; 93306; 96374; 96375; 99285; J1642; J1644; J1940; J2270; J3490

== ENCOUNTER 2020-04-16 23:59 | Emergency (ER) | payer MEDICARE ==
[2020-04-17 01:36] LABS: ABSOLUTE BASOPHILS # (AUTO) 0.1 10^3/uL (0.0-0.2); ABSOLUTE EOSINOPHILS # (AUTO) 0.1 10^3/uL (0.0-0.6); ABSOLUTE LYMPHOCYTES (AUTO) 0.6 10^3/uL (0.5-4.7); ABSOLUTE MONOCYTES (AUTO) 0.8 10^3/uL (0.1-1.4); BASOPHILS % (AUTO) 0.6 % (0-2); EOSINOPHILS % (AUTO) 0.9 % (0-6); HEMATOCRIT 27.2 % (37.9-51.0); HEMOGLOBIN 9.3 g/dL (13.5-17.0); LYMPHOCYTES % (AUTO) 6.2 % (13-45); MEAN CORPUSCULAR HEMOGLOBIN 28.2 pg (27.0-33.4); MEAN CORPUSCULAR HGB CONC 34.2 g/dL (32.0-36.0); MEAN CORPUSCULAR VOLUME 82 fl (80-97); MONOCYTES % (AUTO) 8.4 % (3-13); PLATELET COUNT 467 10^3/uL (150-450); RED CELL DISTRIBUTION WIDTH 17.4 % (11.5-14.0); SEGMENTED NEUTROPHILS % (AUTO) 83.9 % (42-78); TOTAL CELLS COUNTED % (AUTO) 100 %; WHITE BLOOD COUNT 9.5 10^3/uL (4.0-10.5)
[2020-04-17 02:01] LABS: ALBUMIN 3.8 g/dL (3.5-5.0); ALKALINE PHOSPHATASE 196 U/L (38-126); ANION GAP 11 (5-19); ASPARTATE AMINO TRANSFERASE 33 U/L (17-59); BILIRUBIN,DIRECT 0.3 mg/dL (0.0-0.4); BILIRUBIN,TOTAL 0.8 mg/dL (0.2-1.3); BLOOD UREA NITROGEN 21 mg/dL (7-20); CALCIUM 9.2 mg/dL (8.4-10.2); CARBON DIOXIDE 25 mmol/L (22-30); CHLORIDE 101 mmol/L (98-107); GLUCOSE 157 mg/dL (75-110); POTASSIUM 3.9 mmol/L (3.6-5.0); TOTAL PROTEIN 7.2 g/dL (6.3-8.2)
[2020-04-17] MEDS ORDERED: NORMAL SALINE 500 ML IV ONE (08:32)
[2020-04-17 08:45] LABS: INTERNATIONAL RATION (INR) 1.05; PROTHROMBIN TIME 13.9 SEC (11.4-15.4)
[2020-04-17] MEDS: HYDROMORPHONE HCL INJ/PF 2 MG/ML AMPULE IV PRN ×2 (09:16→13:47)
--- NOTE | 2020-04-17 09:29 | ER Document Report ---
ED General - General Chief Complaint: Abdominal Pain Stated Complaint: MASS ON LIVER AND IN PAIN Primary Care Provider: YEN NORRIS PA-C [Primary Care Provider] - Follow up as needed TRAVEL OUTSIDE OF THE [place] IN LAST 30 DAYS: No - HPI Notes: Chief Complaint: Abdominal pain Historian: History obtained from patient and family member HPI: This is a 70-year-old male presents to the ER complaining of right-sided abdominal pain x2 days. Patient was recently in the ED for similar symptoms this past week and was noted to have a 14 cm liver mass on CAT scan. Patient does have an oncologist who is aware, he was prior treated for bladder and prostate cancer. Last received chemo about 2 years ago. Family member says patient has upcoming oncology appointment this coming week. He had a prior l iver biopsy a couple years ago which was benign. Patient's rijqtytp-hz-ker says that patient's pain has not been controlled since yesterday. He has been taking his scheduled 5 mg oxycodones as well as heating pad and other supportive therapies without relief. Abdominal pain is constant and right-sided, nonradiating. Patient is tolerating p.o. intake but decreased since yesterday. Denies nausea vomiting, fevers, chills, dysuria, jaundice, diarrhea, constipation. Last bowel movement was yesterday. Patient's qpiwlsvl-ag-ntw says she gave him a Unisom last night to help him sleep which is why he is slightly drowsy this morning. She denies any change in mental status with the patient-he is at baseline w/ mild deficits related to prior TIAs. He appears calm and in no acute distress in the ED. ROS: Constitutional: no fevers. HEENT: no CARTWRIGHT, sore throat, or vision changes. CV: no chest pain or palpitations. Resp: no cough or SOB. GI: Abdominal painright upper. : no dysuria, hematuria, or incont. MSK: no back pain, no joint swelling/redness. Skin: no rashes or itching. Neuro: no seizures, weakness, numbness, or confusion. Hematological: no ecchymosis or easy bleeding. Endocrine: no polyuria/polydipsia, no heat/cold intolerance. Psych: no SI/HI, AH/VH or memory loss. PMHx: Reviewed and agree as charted by RN. PSHx: Reviewed and agree as charted by RN. SOCHx: Reviewed and agree as charted by RN. FHX: No significant familial comorbid conditions directly related to patient complaint Current Medications: Reviewed and agree with the patient medications as charted by the RN. Allergies: Reviewed and agree with the listed allergies as charted by the RN Physical Exam: Vitals: Reviewed in chart as documented by RN. General: Alert and in NAD. Head: Normocephalic; atraumatic Eyes: PERRLA, Conjunctivae clear sclerae non-icteric bilat ENT: no soft palate swelling or uvular deviation Neck: trachea midline, no unilateral swelling/tenderness/lymphadenopathy CV: RRR, no M/R/G; symmetric distal pulses Resp: respirations even and unlabored, CTA bilat. GI: mild abdominal distension, diffuse abdominal tenderness greatest at RUQ. normal BS. abdomen firm, voluntary guarding. no rebound. no ecchymosis. no CVAT. MSK: FROM of all extremities. No midline CTL spine tenderness/deformity Skin: warm, moist, good turgor. no rash/lesions Neuro: mild drowsiness but oriented X 4. CN 2-12 intact. no unilateral weakness/numbness Psych: No SI/HI or AH/VH. ED Results: Medical Decision-Making: Medical Decision-making/Differential Diagnosis: Consider various etiologies including but not limited to liver mass, chronic pain, ascites, hepatitis, tumor/cancer, Abdominal pain, Hernia, Acute Gastritis, Appendicitis, Partial or Complete small bowel obstruction, Cholecysitis, Diverticulitis, Gastroenteritis, GERD, Nephrolithiasis, Pancreatitis, Peptic Ulcer Disease, Urinary Tract Infection, Pyelonephritis, Infection, metabolic derangement, ect plan - Labs, urine, abdominal US, IV fluid hydration, opiate analgesia, prn antiemetics, and a period of observation in the emergency department for frequent reassessments. . labs reviewed and reassuring, creatinine slightly elevated but within pts normal trend. hgb 9 but also baseline for pt. wbc normal. LFTs unconcerning. Will provide pain control for pt in the ED w/ IV dilaudid and gentle IV fluid rehydration. If US is reassuring, likely d/c home w/ oncology f/u to further management of pts liver mass and pain control. This course of action was discussed with the patient and/or family. They were amenable to this, verbalized understanding, and were without further questions. - Related Data Allergies/Adverse Reactions: No Known Allergies Allergy (Verified 04/17/20 01:07) Home Medications: OXYCOTIN 5 MG Q4 HRS Past Medical History - Social History Smoking Status: Current Every Day Smoker Frequency of alcohol use: None Drug Abuse: Prescription drugs Family History: Reviewed & Not Pertinent - Past Medical History Cardiac Medical History: Reports: Hx Coronary Artery Disease - HIGH CHOLESTEROL, Hx Heart Attack, Hx Hypercholesterolemia, Hx Hypertension Pulmonary Medical History: Reports: Hx COPD Denies: Hx Asthma, Hx Bronchitis, Hx Pneumonia Neurological Medical History: Denies: Hx Cerebrovascular Accident, Hx Seizures Renal/ Medical History: Denies: Hx Peritoneal Dialysis Musculoskeletal Medical History: Reports Hx Arthritis Psychiatric Medical History: Denies: Hx Depression Past Surgical History: Reports: Hx Cardiac Catheterization - X13 CARDIAC STENTS, Hx Cholecystectomy - cabgx3, Hx Coronary Artery Bypass Graft, Hx Orthopedic Surgery - Immunizations Hx Diphtheria, Pertussis, Tetanus Vaccination: Yes Physical Exam - Vital signs Vitals: Temp Pulse Resp BP Pulse Ox 98.8 F 56 L 18 127/42 H 96 04/17/20 00:18 04/17/20 00:18 04/17/20 00:18 04/17/20 00:18 04/17/20 00:18 Course - Re-evaluation Re-evalutation: 04/17/20 15:25 US reviewed- 1. enlarged GB, wall thickening at 5mm, CBD dilated to 8mm, surrounding pericholecystic fluid. 2. 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 3. Just under 15cm liver mass at right lobe. 4. possible portal venous thrombosis vs tumor extension. Discussed w/ Dr Berman- will consult general surgery to discuss surgical management of pts acute cholecystitis. Ordered Zosyn 4.5gm IV. pre-op ECG and CXR ordered. Spoke w/ Dr Rand- recommended transfer of pt to another facility w/ GI or other operating room surgical technologist to manage patient. Called [facility]- they are at capacity and not accepting transfers. Called [facility] referral line-they requested pt demographic sheet to be faxed and to move all recent imaging to [facility] completed both tasks. [facility] called back saying pt is accepted for transfer- She spoke w/ surgeon-Dr Ok Parsons who was in the OR and unable to step away to speak to me on the phone. referral center says they informed him of pts condition on speaker phone and he told her to have the pt transferred to the hospital and ''come to the OR''. I did not have an opportunity to fully discuss pts case w/ the accepting physician. 04/17/20 15:39 Pt will be transferred to [facility]. Dr Parsons w/ general surgery accepting. EMTALA completed by myself and Dr Hamilton. Pt is stable prior to transfer. of note, pts daughter in law just informed me that pt had coumdin stopped 3 weeks ago due to a planned, but never completed, procedure. It has remained discontinued due to the large liver mass. PT has not had any chest pain, sob, or hemoptysis- no signs of PE during his course in the ER. 04/17/20 15:46 - Vital Signs Vital signs: Temp Pulse Resp BP Pulse Ox 98.0 F 71 13 109/50 L 100 04/17/20 06:06 04/17/20 06:06 04/17/20 15:55 04/17/20 15:55 04/17/20 15:55 - Laboratory Results Result Diagrams: 04/17/20 01:25 04/17/20 01:25 Laboratory Results Interpreted: 04/17/20 04/17/20 01:25 01:25 RBC 3.30 L Hgb 9.3 L Hct 27.2 L RDW 17.4 H Plt Count 467 H Lymph % (Auto) 6.2 L Seg Neutrophils % 83.9 H Sodium 136.7 L BUN 21 H Creatinine 1.46 H Est GFR ( Amer) 58 L Est GFR (MDRD) Non-Af 48 L Glucose 157 H Alkaline Phosphatase 196 H Critical Laboratory Results Reviewed: No Critical Results - Radiology Results Critical Radiology Results Reviewed: No Critical Results Discharge - Discharge Clinical Impression: Acute cholecystitis without calculus, Liver mass, right lobe, PVT (portal vein thrombosis) Condition: Serious Disposition: [facility] Referrals: YEN NORRIS PA-C [Primary Care Provider] - Follow up as needed
--- NOTE | 2020-04-17 11:19 | RADIOLOGY REPORT (SQ) ---
EXAM DESCRIPTION: U/S ABDOMEN COMPLETE W/DOPPLER IMAGES COMPLETED DATE/TIME: 04/17/2020 10:58 am REASON FOR STUDY: RUQ pain, liver mass COMPARISON: CT dated 04/10/2020 TECHNIQUE: Dynamic and static grayscale images acquired of the abdomen and recorded on PACS. Additio nal selected color Doppler and spectral images recorded. Note: Study does not meet criteria for complete doppler/duplex scan LIMITATIONS: None. FINDINGS: PANCREAS: Complex largely hypoechoic mass in the region of the pancreatic head. This ilya ures 5.2 x 5.8 x 3.8 cm. Findings are consistent with neoplasm. Based on recent CT this most likely represents enlarged node with central necrosis. LIVER: Heterogeneous echogenicity throughout the liver with a large mass measuring just under 15 cm i n greatest diameter this is in the right lobe an was demonstrated on recent CT as well. LIVER VASCULATURE: There is hepatopetal flow. Possible thrombus versus direct tumor invasion into th e portal vein. The soft tissue within the portal vein appears hypervascular so suspect this represen ts thrombus. GALLBLADDER: The gallbladder is enlarged. The wall is thickened measured 5 mm. There is pericholecy stic fluid. ULTRASOUND-DETECTED FERGUSON'S SIGN: Negative. INTRAHEPATIC DUCTS AND COMMON DUCT: Common bile duct is dilated measured 8 mm. INFERIOR VENA CAVA: Normal flow. AORTA: Visualized portions of the aorta are normal in appearance. RIGHT KIDNEY: The right kidney measures 12.1 cm in length. Normal echogenicity. No solid or susp icious masses. No hydronephrosis. Right renal cysts are again demonstrated. No calcifications. LEFT KIDNEY: The left kidney measures 10.6 cm in length. Normal echogenicity. No solid or suspic ious masses. No hydronephrosis. There are simple cysts. No calcifications. SPLEEN: Slightly heterogeneous echogenicity. No discrete mass. PERITONEAL AND PLEURAL SPACES: Small effusions. OTHER: No other significant finding. IMPRESSION: Large midline abdominal mass corresponding to prior CT most likely enlarged lymph node. This is adjacent to the pancreatic head. Just under 15 cm right hepatic lobe lesion. Probable bland thrombus in the portal vein all direct tu mor invasion cannot be excluded. TECHNICAL DOCUMENTATION: JOB ID: [id number] [employer]- All Rights Reserved Reading location - IP/workstation name: [email or web address]
--- NOTE | 2020-04-17 12:34 | RADIOLOGY REPORT (SQ) ---
EXAM DESCRIPTION: CHEST SINGLE VIEW IMAGES COMPLETED DATE/TIME: 04/17/2020 12:26 pm REASON FOR STUDY: pre op clearance. cholecystitis COMPARISON: 04/10/2020 NUMBER OF VIEWS: One view. TECHNIQUE: Single frontal radiographic image of the chest acquired. LIMITATIONS: None. FINDINGS: LUNGS AND PLEURA: Stable appearance. MEDIASTINUM AND HILAR STRUCTURES: Stable heart size and mediastinal structures. HEART AND VASCULAR STRUCTURES: Stable appearance. BONES: No acute findings. HARDWARE: Sternotomy wires are in place along with [id number]. OTHER: No other significant finding. IMPRESSION: STABLE APPEARANCE OF THE CHEST. TECHNICAL DOCUMENTATION: JOB ID: [id number] 2010 [employer]- All Rights Reserved Reading location - IP/workstation name: [email or web address]
--- NOTE | 2020-04-17 12:34 | RADIOLOGY REPORT (SQ) ---
EXAM DESCRIPTION: KUB/ABDOMEN (SINGLE VIEW) IMAGES COMPLETED DATE/TIME: 04/17/2020 12:26 pm REASON FOR STUDY: abdomnial distension COMPARISON: None. NUMBER OF VIEWS: One view. TECHNIQUE: Supine radiographic image of the abdomen acquired. LIMITATIONS: None. FINDINGS: BOWEL GAS PATTERN: Nonobstructive gas pattern. Moderate stool throughout the transverse c olon. CALCIFICATIONS: No suspicious calcifications. SOFT TISSUES: No gross mass or suggestion of organomegaly. HARDWARE: None in the abdomen. BONES: No acute fracture. No worrisome bone lesions. OTHER: No other significant finding. IMPRESSION: Moderate stool throughout the transverse colon. No obstruction. TECHNICAL DOCUMENTATION: JOB ID: [id number] 2010 [employer]- All Rights Reserved Reading location - IP/workstation name: [email or web address]
[2020-04-17] MEDS ORDERED: PIPERACILLIN/TAZOBACTAM 3.375 GM VIAL IV ONE (13:09)
[2020-04-17 16:12] VITALS: BP 109/50
--- NOTE | 2020-04-18 17:44 | EKG REPORT ---
SEVERITY:- ABNORMAL ECG - SINUS BRADYCARDIA ABNORMAL T, CONSIDER ISCHEMIA, LATERAL LEADS : Confirmed by: Brent Rudolph MD 18-Apr-2020 17:43:15
== END 2020-04-17 16:24 | disposition short-term general hospital (02) ==
LOC: ER 23:59
DX: K81.0 Acute cholecystitis (principal); R16.0 Hepatomegaly, not elsewhere classified; I81 Portal vein thrombosis; R10.817 Generalized abdominal tenderness; I25.10 Atherosclerotic heart disease of native coronary artery without angina pectoris; I10 Essential (primary) hypertension; I25.2 Old myocardial infarction; J44.9 Chronic obstructive pulmonary disease, unspecified; F17.200 Nicotine dependence, unspecified, uncomplicated; F19.10 Other psychoactive substance abuse, uncomplicated; Z79.891 Long term (current) use of opiate analgesic; Z85.46 Personal history of malignant neoplasm of prostate; Z85.51 Personal history of malignant neoplasm of bladder; Z92.21 Personal history of antineoplastic chemotherapy; Z95.5 Presence of coronary angioplasty implant and graft; Z95.1 Presence of aortocoronary bypass graft
CPT/HCPCS: 93005; 99285; 96375; 96365; 36415; 83690; 85025; 85610; 80053; 71045; 74018; 76700; 93976; 93010; J1170; J7040; J2543